=== PATIENT | female | born 1950 | race Caucasian/White ===

== ENCOUNTER → 2018-04-01 07:11 | Outpatient (CLI) | payer MEDICARE, OTHER, SELFPAY ==
[2018-04-01 07:50] LABS: Add Manual Diff / Slide Review NO; Basophils Percent Auto 0.4 % (0-2); Eosinophils Percent Auto 3.4 % (2-4); Hematocrit 41.5 % (36-46); Hemoglobin 13.9 g/dL (12.0-16.0); Lymphocytes Percent Auto 39.7 % (25-40); Mean Corpuscular HGB Conc 33.5 % (30-36); Mean Corpuscular Hemoglobin 31.2 PG (26-34); Mean Corpuscular Volume 93.1 fL (80-100); Monocytes Percent Auto 8.5 % (3-14); Neutrophils Absolute Auto 2100 /uL (3000-5900); Platelet Count 139 X10^3/uL (150-400); Red Blood Cell Count 4.46 X10^6/uL (4.0-5.2); Red Cell Distribution Width 13.1 % (11.6-14.8); White Blood Cell Count 4.4 X10^3/uL (4.5-11.0)
[2018-04-01 08:05] LABS: Alanine Aminotransferase 25 IU/L (9-52); Albumin 4.3 g/dL (3.5-5.0); Albumin Globulin Ratio 1.5 (1.0-2.8); Alkaline Phosphatase 67 U/L (38-126); Aspartate Aminotransferase 27 IU/L (14-36); BUN Creatinine Ratio 19.1 (6-22); Bilirubin Total 0.6 mg/dL (0.2-1.3); Blood Urea Nitrogen 21 mg/dL (7-17); Calcium 9.4 mg/dL (8.4-10.2); Carbon Dioxide 30 mmol/L (22-32); Chloride 106 mmol/L (98-107); Cholesterol 210 mg/dL (140-199); Estimated Glomerular Filt Rate 49.5 mL/min (>60); Globulin 2.8 g/dL (1.7-4.1); Glucose 103 mg/dL (80-110); HDL Cholesterol 84 mg/dL (40-60); HEMOLYSIS < 15 (0-50); LDL Cholesterol Calculated 116 mg/dL (<100); Potassium 4.4 mmol/L (3.4-5.1); Sodium 143 mmol/L (137-145); Total Protein 7.1 g/dL (6.3-8.2); Triglycerides 52 mg/dL (35-150)
[2018-04-01 08:50] LABS: Vitamin B12 880 pg/mL (239-931)
[2018-04-01 09:19] LABS: Free T4, Direct Thyroxine 1.25 ng/dL (0.78-2.19)
[2018-04-01 09:33] LABS: Thyroid Stimulating Hormone 1.03 uIU/mL (0.47-4.68)
== END ==
PROVIDERS: Visit Provider Physician Assistant
DX: Z12.11 Encounter for screening for malignant neoplasm of colon (principal); Z13.220 Encounter for screening for lipoid disorders; E03.9 Hypothyroidism, unspecified; E53.8 Deficiency of other specified B group vitamins
CPT/HCPCS: 80053; 80061; 82607; 84439; 84443; 85025

== ENCOUNTER → 2018-04-04 16:11 | Outpatient (CLI) | payer MEDICARE, OTHER, SELFPAY ==
[2018-04-04 19:49] LABS: Occult Blood 1 Negative (Negative); Occult Blood 2 Negative (Negative)
[2018-04-04 19:50] LABS: Occult Blood 3 Negative (Negative)
== END ==
PROVIDERS: Visit Provider Physician Assistant
DX: Z12.11 Encounter for screening for malignant neoplasm of colon (principal)
CPT/HCPCS: 82270

== ENCOUNTER → 2020-08-02 13:28 | Outpatient (CLI) | payer MEDICARE, OTHER, SELFPAY ==
[2020-08-02] MEDS: COVID-19 VACC #1, MRNA(MOD) 100 MCG/0.5 ML VIAL IM (13:42)
== END ==
PROVIDERS: Visit Provider Internal Medicine
DX: Z23 Encounter for immunization (principal)
CPT/HCPCS: 0011A; 91301

== ENCOUNTER → 2020-08-30 14:29 | Outpatient (CLI) | payer MEDICARE, OTHER, SELFPAY ==
[2020-08-30] MEDS: COVID-19 VACC #2, MRNA(MOD) 100 MCG/0.5 ML VIAL IM (14:35)
== END ==
PROVIDERS: Visit Provider Internal Medicine
DX: Z23 Encounter for immunization (principal)
CPT/HCPCS: 0012A; 91301

== ENCOUNTER 2021-05-01 09:45 | Outpatient (RCR) | payer MEDICARE, OTHER, SELFPAY ==
--- NOTE | 2021-03-06 11:12 | PT.OIE ---
Current Diagnoses Arthrodesis status (03/06/21) Visit Care Team Role Provider Type Saniya Clinton PA-C Primary Care Provider Non-Staff Specialty: Medical Address: [address] [place] [address] [address], [place], [address] Email: Niko Nesbitt MD Attending Provider Non-Staff Referring Provider Specialty: Medical Address: [address] [place] [address] [address], [place], [address] Email: Physical Therapy Initial Evaluation PT-OP-A Visit Information Start: 03/06/21 10:42 Freq: Status: Active Protocol: Document 03/06/21 10:43 HH (Rec: 03/06/21 11:11 HH [email or web address]) Out-Patient Physical Therapy Visit Information Visit Information Visit Type Initial Evaluation Visit Start Time 08:15 Visit Stop Time 09:00 Total Visit Minutes 45 Visit Number 07/30 Number of PAYROLL OFFICER Visits 0 Evaluation Information Evaluation Date 03/06/21 Precautions Precautions osteopenia PT-OP-B Current Condition Start: 03/06/21 10:42 Freq: Status: Active Protocol: Document 03/06/21 10:43 HH (Rec: 03/06/21 11:11 HH [email or web address]) Current Condition History of Current Condition Onset Date 01/06/21 Current Complaints s/p lumbar L4-L5 fusion, LBP, R leg pain, R foot slap History of Current Condition Emma is a 70 yo female here here for her rehab s/p 8 weeks Lumbar L4-L5 fusion. Pt has been having a new onset of radiating R leg pain (lateral knee to medial heel and big toe). She stated she only had mild radiating leg pain bilaterally, along with slight R foot weakness prior to surgery. Pt is having difficulty walking at this point with significant pain at R buttock during WB on RLE and new onset of R foot slap. Sitting and laying seem not to bother her. Pt has been taking Gabapentin at night and muscle relaxant for pain management. She also noticed her balance and overall LE strength have been decreasing. Pt did report to her surgeon Dr. Nesbitt and he stated that it is going to take at least 6 months for recovery. Prior Functional Status Baseline Function- Other pt was able to walk 3-5 miles /day and play pickle ball couple times a week Current Functional Impairments (Reported) Functional Limitations- Mobility/Gait pt is only able to walk up to 1-2 miles a day because of pain. PT-OP-C Subjective Start: 03/06/21 10:42 Freq: Status: Active Protocol: Document 03/06/21 10:43 HH (Rec: 03/06/21 11:11 [email or web address]) Patient Questionnaires Oswestry Low Back Index Oswestry Score 40 Oswestry Impairment 40 to 59% Impaired (Score 40- 59) OP-PT Pain Assessment Location R lower leg Pain Location Details lateral lower leg and lateral ankle Intensity 5 Description Aching,Radiating Frequency Frequent Pain Aggravating Factors Position,Activity,Exercise, Standing,Walking,Stair Climbing,Bending,Lifting Pain Alleviating Factors Inactivity,Sitting R buttock Pain Location Details buttock Intensity 5 Scale Used Numeric (0 - 10) Description Aching,Radiating Frequency Frequent Pain Aggravating Factors Position,Activity,Exercise, Standing,Walking,Stair Climbing,Bending,Lifting Pain Alleviating Factors Inactivity,Sitting PT-OP-D Balance Start: 03/06/21 10:42 Freq: Status: Active Protocol: Document 03/06/21 10:43 HH (Rec: 03/06/21 11:11 [email or web address]) Balance Tests Single Limb Standing Single Limb- Right <3s Single Limb- Left >25s PT-OP-F Manual Assessment Start: 03/06/21 10:42 Freq: Status: Active Protocol: Document 03/06/21 10:43 HH (Rec: 03/06/21 11:11 [email or web address]) Manual Assessments Soft Tissue Assessment Soft Tissue Mobility Assessment significant hypertonicity at R anterior tib and R TFL, and gluteal muscle group PT-OP-G Mobility & Gait Start: 03/06/21 10:42 Freq: Status: Active Protocol: Document 03/06/21 10:43 HH (Rec: 03/06/21 11:11 [email or web address]) OP Gait Assessment Gait Deviations General Gait Pattern Antalgic,Decreased Stride Length,Decreased Feet Clearance Factors Limiting Gait Function Factors Limiting Gait Function Decreased Activity Tolerance, Decreased Sensation,Decreased Strength,Limited Range of Motion,Pain,Poor Balance Comments Gait Comments significant antalgic sign on R LE during stance phase, R foot slap during heel strike. PT-OP-H Neuro Start: 03/06/21 10:42 Freq: Status: Active Protocol: Document 03/06/21 10:43 HH (Rec: 03/06/21 11:11 [email or web address]) Sensation Evaluation Gross Sensation Gross Sensation Right LE Impaired Sensation Description Numbness Dermatome Impairments L5 Deep Tendon Reflex & Clonus Assessment Deep Tendon Reflex Left Patellar Deep Tendon Reflex 2+ Normal Bilateral Achilles Deep Tendon Reflex 2+ Normal Right Patellar Deep Tendon Reflex 0 Absent PT-OP-K Range of Motion Start: 03/06/21 10:42 Freq: Status: Active Protocol: Document 03/06/21 10:43 HH (Rec: 03/06/21 11:11 [email or web address]) Ankle and Foot Goniometric Range of Motion Ankle and Foot Right Passive Ankle/Foot ROM WFL No Testing Position Supine Dorsiflexion with Knee Flexed 10 Dorsiflexion with Knee Extended 8 Right Active Ankle/Foot ROM WFL No Testing Position Supine Dorsiflexion with Knee Extended 0 Comments active DF = -5 Left Active Ankle/Foot ROM WFL Yes Testing Position Supine Dorsiflexion with Knee Flexed 7 Dorsiflexion with Knee Extended 5 PT-OP-L Special Tests Start: 03/06/21 10:42 Freq: Status: Active Protocol: Document 03/06/21 10:43 HH (Rec: 03/06/21 11:11 [email or web address]) Special Tests Lumbar Spine Special Tests Straight Leg Raise Test Results +VE R Comments ASLR up to 80, L = 95 Slump Test Results +VE R Comments radiating pain to buttock PT-OP-M Strength Start: 03/06/21 10:42 Freq: Status: Active Protocol: Document 03/06/21 10:43 HH (Rec: 03/06/21 11:11 [email or web address]) Hip Strength Hip Manual Muscle Testing Right Flexion (L2) 3+ Fair+ Extension (S1) 4- Good- Abduction 3+ Fair+ Adduction 4- Good- Left Flexion (L2) 5 Normal Extension (S1) 5 Normal Abduction 5 Normal Adduction 5 Normal Knee Strength Knee Manual Muscle Testing Right Flexion (S2) 4+ Good+ Extension (L3) 4+ Good+ Left Flexion (S2) 5 Normal Extension (L3) 5 Normal Ankle/Foot Strength Ankle and Foot Manual Muscle Testing Right Dorsiflexion (L4) 3+ Fair+ Plantarflexion (S1) 4+ Good+ Inversion 4+ Good+ Eversion (S1) 4+ Good+ Left Dorsiflexion (L4) 5 Normal Plantarflexion (S1) 5 Normal Inversion 5 Normal Eversion (S1) 5 Normal Toe Strength Toe Manual Muscle Testing Right Flexion 4- Good- Extension 4+ Good+ Left Great Toe Flexion 4+ Good+ Extension 4+ Good+ PT-OP-T Assessment and Plan Start: 03/06/21 10:42 Freq: Status: Active Protocol: Document 03/06/21 10:43 (Rec: 03/06/21 11:11 [email or web address]) Physical Therapy Assessment Rehab Potential Rehabilitation Potential Excellent Evaluation Complexity Number of Personal Factors/Comorbidities 1-2 Number of Body Systems Impaired 1-2 Clinical Presentation at Evaluation Stable Impairments Impairments Activity Tolerance,Balance, Functional Activities, Functional Mobility,Gait,Pain, Posture,ROM,Soft Tissue Mobility,Strength,Transfers Goals gait mechanics Impairment antalgic sign with R foot slap Short Term Goal (STG) pt will strengthen her R ankle DF and big toe extension to improve her foot slap pattern during heel strike STG Duration 5 weeks Blunger Goal (LTG) pt will show improved R LE strength and stability to reduce her R antalgic sign during gait LTG Duration 10 weeks nerve tension Impairment +Ve for slump test and ASLR Short Term Goal (STG) pt will show improve pain and neural sensitivity without radiating pain to buttock for both slump and ASLR tests STG Duration 8 weeks Owestry Impairment pt scores 40 on Owestry Short Term Goal (STG) pt will be able to show improved mobility and strength by scoring 30 or less on Owestry STG Duration 5 weeks Prison Goal (LTG) pt will be able to show improved mobility and strength by scoring 20 or less on Owestry LTG Duration 10 weeks Assessment Summary Assessment Emma is a 70 yo female here for rehab s/p 8 weeks L4-L5 fusion. Pt has been experiencing a new onset of radiating R leg pain and foot slap during gait with significant difficulty WB on her R side d/t pain. Upon assessment, pt has sensation loss at L5 dermatome, decrease knee jerk reflex, weakness with ankle DF and big toe extension which indicates L5 myotome involvement. She is also positive with slump test and ASLR. 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 Pt has had f/u with surgeon and Dr. Nesbitt did state it might take some time for recovery. I believe pt can benefit from a course of skilled therapy to decrease her sciatic neural tension, increase R ankle strength in order to normalize her gait and return to her PLOF, who likes to walk 3-4 miles a day and play pickleball. Physical Therapy Plan Frequency and Duration Frequency of Treatment 2x/Week Duration of Treatment 10 weeks Plan of Care Start Date 03/06/21 Plan of Care End Date 05/20/21 Therapeutic Interventions Therapeutic Interventions Aquatic Therapy,Balance Training,Gait Training,Home Exercise Program,Joint Mobilizations,Manual Therapy, Neuromuscular Re-education, Patient/Caregiver Education, Self-Care/Home Management,Soft Tissue Mobilization,Taping, Therapeutic Activities, Therapeutic Exercises Modalities Cold Pack/Ice Massage,Electric Stimulation,Hot Packs, Infrared Therapy,Traction- Mechanical,Ultrasound Other Therapeutic Interventions NMES for ankle DF Next Visit Focus/Plan Next Note Type Treatment Note Next Visit Plan STM on R glute, TFL, ant tib HEP for ankle DF, nerve glide glute activation NMES on ant tib if needed
--- NOTE | 2021-03-06 11:12 | PT.OPPOC ---
Physical, Occupational & Speech Therapy At [facility] Current Diagnoses Arthrodesis status (03/06/21) Visit Care Team Role Provider Type Saniya Clinton PA-C Primary Care Provider Non-Staff Specialty: Medical Address: [address] [place] [address] [address], [place], [address] Email: Niko Nesbitt MD Attending Provider Non-Staff Referring Provider Specialty: Medical Address: [address] [place] [address] [address], [place], [address] Email: Plan Of Care PT-OP-T Assessment and Plan Start: 03/06/21 10:42 Freq: Status: Active Protocol: Document 03/06/21 10:43 (Rec: 03/06/21 11:11 [email or web address]) Physical Therapy Assessment Rehab Potential Rehabilitation Potential Excellent Evaluation Complexity Number of Personal Factors/Comorbidities 1-2 Number of Body Systems Impaired 1-2 Clinical Presentation at Evaluation Stable Impairments Impairments Activity Tolerance,Balance, Functional Activities, Functional Mobility,Gait,Pain, Posture,ROM,Soft Tissue Mobility,Strength,Transfers Goals gait mechanics Impairment antalgic sign with R foot slap Short Term Goal (STG) pt will strengthen her R ankle DF and big toe extension to improve her foot slap pattern during heel strike STG Duration 5 weeks Furniture Finisher Apprentice Goal (LTG) pt will show improved R LE strength and stability to reduce her R antalgic sign during gait LTG Duration 10 weeks nerve tension Impairment +Ve for slump test and ASLR Short Term Goal (STG) pt will show improve pain and neural sensitivity without radiating pain to buttock for both slump and ASLR tests STG Duration 8 weeks Owestry Impairment pt scores 40 on Owestry Short Term Goal (STG) pt will be able to show improved mobility and strength by scoring 30 or less on Owestry STG Duration 5 weeks Long-Term Goal (LTG) pt will be able to show improved mobility and strength by scoring 20 or less on Owestry LTG Duration 10 weeks Assessment Summary Assessment Emma is a 70 yo female here for rehab s/p 8 weeks L4-L5 fusion. Pt has been experiencing a new onset of radiating R leg pain and foot slap during gait with significant difficulty WB on her R side d/t pain. Upon assessment, pt has sensation loss at L5 dermatome, decrease knee jerk reflex, weakness with ankle DF and big toe extension which indicates L5 myotome involvement. She is also positive with slump test and ASLR. 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 Pt has had f/u with surgeon and Dr. Nesbitt did state it might take some time for recovery. I believe pt can benefit from a course of skilled therapy to decrease her sciatic neural tension, increase R ankle strength in order to normalize her gait and return to her PLOF, who likes to walk 3-4 miles a day and play pickleball. Physical Therapy Plan Frequency and Duration Frequency of Treatment 2x/Week Duration of Treatment 10 weeks Plan of Care Start Date 03/06/21 Plan of Care End Date 05/20/21 Therapeutic Interventions Therapeutic Interventions Aquatic Therapy,Balance Training,Gait Training,Home Exercise Program,Joint Mobilizations,Manual Therapy, Neuromuscular Re-education, Patient/Caregiver Education, Self-Care/Home Management,Soft Tissue Mobilization,Taping, Therapeutic Activities, Therapeutic Exercises Modalities Cold Pack/Ice Massage,Electric Stimulation,Hot Packs, Infrared Therapy,Traction- Mechanical,Ultrasound Other Therapeutic Interventions NMES for ankle DF Next Visit Focus/Plan Next Note Type Treatment Note Next Visit Plan STM on R glute, TFL, ant tib HEP for ankle DF, nerve glide glute activation NMES on ant tib if needed Plan of Care Dates Plan of Care Start Date 03/06/21 Plan of Care End Date 05/20/21 Electronically Signed by: Raul Clements PT 03/06/21 [id number] Please Sign and Return: I have reviewed this Plan of Care and certify that the skilled therapy services above are required to meet the patient?s needs. Physician Signature Date Printed Name and Credentials Clinical Instructor Signature Printed Name and Credentials
--- NOTE | 2021-03-07 10:35 | PT.OTN ---
Current Diagnoses Arthrodesis status (03/07/21) Physical Therapy Treatment Note PT-OP-A Visit Information Start: 03/06/21 10:42 Freq: Status: Active Protocol: Document 03/07/21 09:50 HH (Rec: 03/07/21 10:35 [id number]) Out-Patient Physical Therapy Visit Information Visit Information Visit Type Treatment Note Visit Start Time 09:45 Visit Stop Time 10:38 Total Visit Minutes 53 Visit Number 08/30 Number of PAINT TRIMMER PIPE BOWLS Visits 0 PT-OP-B Current Condition Start: 03/06/21 10:42 Freq: Status: Active Protocol: Document 03/06/21 10:43 HH (Rec: 03/06/21 11:11 HH [email or web address]) Current Condition History of Current Condition Onset Date 01/06/21 Current Complaints s/p lumbar L4-L5 fusion, LBP, R leg pain, R foot slap History of Current Condition Emma is a 70 yo female here here for her rehab s/p 8 weeks Lumbar L4-L5 fusion. Pt has been having a new onset of radiating R leg pain (lateral knee to medial heel and big toe). She stated she only had mild radiating leg pain bilaterally, along with slight R foot weakness prior to surgery. Pt is having difficulty walking at this point with significant pain at R buttock during WB on RLE and new onset of R foot slap. Sitting and laying seem not to bother her. Pt has been taking Gabapentin at night and muscle relaxant for pain management. She also noticed her balance and overall LE strength have been decreasing. Pt did report to her surgeon Dr. Nesbitt and he stated that it is going to take at least 6 months for recovery. Prior Functional Status Baseline Function- Other pt was able to walk 3-5 miles /day and play pickle ball couple times a week Current Functional Impairments (Reported) Functional Limitations- Mobility/Gait pt is only able to walk up to 1-2 miles a day because of pain. PT-OP-C Subjective Start: 03/06/21 10:42 Freq: Status: Active Protocol: Document 03/07/21 09:50 HH (Rec: 03/07/21 10:35 HH [id number]) OP-PT Subjective Patient Comments Patient Comments I feel more tingling at the bottom of my R foot yesterday and i dont know why. PT-OP-D Balance Start: 03/06/21 10:42 Freq: Status: Active Protocol: Document 03/06/21 10:43 HH (Rec: 03/06/21 11:11 [email or web address]) Balance Tests Single Limb Standing Single Limb- Right <3s Single Limb- Left >25s PT-OP-F Manual Assessment Start: 03/06/21 10:42 Freq: Status: Active Protocol: Document 03/06/21 10:43 HH (Rec: 03/06/21 11:11 [email or web address]) Manual Assessments Soft Tissue Assessment Soft Tissue Mobility Assessment significant hypertonicity at R anterior tib and R TFL, and gluteal muscle group PT-OP-G Mobility & Gait Start: 03/06/21 10:42 Freq: Status: Active Protocol: Document 03/06/21 10:43 HH (Rec: 03/06/21 11:11 [email or web address]) OP Gait Assessment Gait Deviations General Gait Pattern Antalgic,Decreased Stride Length,Decreased Feet Clearance Factors Limiting Gait Function Factors Limiting Gait Function Decreased Activity Tolerance, Decreased Sensation,Decreased Strength,Limited Range of Motion,Pain,Poor Balance Comments Gait Comments significant antalgic sign on R LE during stance phase, R foot slap during heel strike. PT-OP-H Neuro Start: 03/06/21 10:42 Freq: Status: Active Protocol: Document 03/06/21 10:43 HH (Rec: 03/06/21 11:11 [email or web address]) Sensation Evaluation Gross Sensation Gross Sensation Right LE Impaired Sensation Description Numbness Dermatome Impairments L5 Deep Tendon Reflex & Clonus Assessment Deep Tendon Reflex Left Patellar Deep Tendon Reflex 2+ Normal Bilateral Achilles Deep Tendon Reflex 2+ Normal Right Patellar Deep Tendon Reflex 0 Absent PT-OP-K Range of Motion Start: 03/06/21 10:42 Freq: Status: Active Protocol: Document 03/06/21 10:43 HH (Rec: 03/06/21 11:11 [email or web address]) Ankle and Foot Goniometric Range of Motion Ankle and Foot Right Passive Ankle/Foot ROM WFL No Testing Position Supine Dorsiflexion with Knee Flexed 10 Dorsiflexion with Knee Extended 8 Right Active Ankle/Foot ROM WFL No Testing Position Supine Dorsiflexion with Knee Extended 0 Comments active DF = -5 Left Active Ankle/Foot ROM WFL Yes Testing Position Supine Dorsiflexion with Knee Flexed 7 Dorsiflexion with Knee Extended 5 PT-OP-L Special Tests Start: 03/06/21 10:42 Freq: Status: Active Protocol: Document 03/06/21 10:43 HH (Rec: 03/06/21 11:11 [email or web address]) Special Tests Lumbar Spine Special Tests Straight Leg Raise Test Results +VE R Comments ASLR up to 80, L = 95 Slump Test Results +VE R Comments radiating pain to buttock PT-OP-M Strength Start: 03/06/21 10:42 Freq: Status: Active Protocol: Document 03/06/21 10:43 HH (Rec: 03/06/21 11:11 [email or web address]) Hip Strength Hip Manual Muscle Testing Right Flexion (L2) 3+ Fair+ Extension (S1) 4- Good- Abduction 3+ Fair+ Adduction 4- Good- Left Flexion (L2) 5 Normal Extension (S1) 5 Normal Abduction 5 Normal Adduction 5 Normal Knee Strength Knee Manual Muscle Testing Right Flexion (S2) 4+ Good+ Extension (L3) 4+ Good+ Left Flexion (S2) 5 Normal Extension (L3) 5 Normal Ankle/Foot Strength Ankle and Foot Manual Muscle Testing Right Dorsiflexion (L4) 3+ Fair+ Plantarflexion (S1) 4+ Good+ Inversion 4+ Good+ Eversion (S1) 4+ Good+ Left Dorsiflexion (L4) 5 Normal Plantarflexion (S1) 5 Normal Inversion 5 Normal Eversion (S1) 5 Normal Toe Strength Toe Manual Muscle Testing Right Flexion 4- Good- Extension 4+ Good+ Left Great Toe Flexion 4+ Good+ Extension 4+ Good+ PT-OP-Q Treatments Start: 03/06/21 10:42 Freq: Status: Active Protocol: Document 03/07/21 09:50 HH (Rec: 03/07/21 10:35 [id number]) Cardio Equipment Recumbent Bicycle Duration (Minutes) 5 Resistance 5 Other no discomfort. Therapeutic Exercises Supine Exercises sciatic nerve glide Supine Exercise Name w DF Side right Reps/Minutes 10 Comments for HEP, no discomfort Sitting Exercises calf stretch Resistance belt Reps/Minutes 15 s x 5 Comments for HEP ankle DF Resistance level 2 band Reps/Minutes 10 x2 Manual Therapy Treatment Soft Tissue Mobilization ant tib Mobilization Type Myofascial Release,Sustained Pressure,Trigger Point Release Intensity/Depth Moderate Body Position Supine glute Body Location R Mobilization Type Myofascial Release,Sustained Pressure,Trigger Point Release Intensity/Depth Moderate Body Position Sidelying Comments TFL and piriformis and glute med. Significant tenderness noted but reduced after. PT-OP-R Modalities Start: 03/06/21 10:42 Freq: Status: Active Protocol: Document 03/07/21 09:50 HH (Rec: 03/07/21 10:35 HH [id number]) Hot Pack/Cold Pack Treatment Hot Pack Location R hip Patient Position Hooklying Treatment Duration (minutes) 15 Patient Tolerance Good PT-OP-T Assessment and Plan Start: 03/06/21 10:42 Freq: Status: Active Protocol: Document 03/07/21 09:50 HH (Rec: 03/07/21 10:35 HH [email or web address]) Physical Therapy Assessment Goals gait mechanics Impairment antalgic sign with R foot slap Short Term Goal (STG) pt will strengthen her R ankle DF and big toe extension to improve her foot slap pattern during heel strike STG Duration 5 weeks Nursing Home Goal (LTG) pt will show improved R LE strength and stability to reduce her R antalgic sign during gait LTG Duration 10 weeks nerve tension Impairment +Ve for slump test and ASLR Short Term Goal (STG) pt will show improve pain and neural sensitivity without radiating pain to buttock for both slump and ASLR tests STG Duration 8 weeks Owestry Impairment pt scores 40 on Owestry Short Term Goal (STG) pt will be able to show improved mobility and strength by scoring 30 or less on Owestry STG Duration 5 weeks Nursing Home Goal (LTG) pt will be able to show improved mobility and strength by scoring 20 or less on Owestry LTG Duration 10 weeks Assessment Summary Assessment First tx session today which focused on manual therapy on R glute and ant followed by sciatic nerve glide, PF stretch and ankle DF strengthening. Pt deb session very well and her slump test is negative at the end of session Physical Therapy Plan Frequency and Duration Frequency of Treatment 2x/Week Duration of Treatment 10 weeks Plan of Care Start Date 03/06/21 Plan of Care End Date 05/20/21 Therapeutic Interventions Therapeutic Interventions Aquatic Therapy,Balance Training,Gait Training,Home Exercise Program,Joint Mobilizations,Manual Therapy, Neuromuscular Re-education, Patient/Caregiver Education, Self-Care/Home Management,Soft Tissue Mobilization,Taping, Therapeutic Activities, Therapeutic Exercises Modalities Cold Pack/Ice Massage,Electric Stimulation,Hot Packs, Infrared Therapy,Traction- Mechanical,Ultrasound Other Therapeutic Interventions NMES for ankle DF Next Visit Focus/Plan Next Note Type Treatment Note Next Visit Plan STM on R glute, TFL, ant tib HEP for ankle DF, nerve glide glute activation NMES on ant tib if needed
--- NOTE | 2021-03-10 10:39 | PT.OTN ---
Current Diagnoses Arthrodesis status (03/10/21) Physical Therapy Treatment Note PT-OP-A Visit Information Start: 03/06/21 10:42 Freq: Status: Active Protocol: Document 03/10/21 09:47 HH (Rec: 03/10/21 10:39 [id number]) Out-Patient Physical Therapy Visit Information Visit Information Visit Type Treatment Note Visit Start Time 09:02 Visit Stop Time 09:55 Total Visit Minutes 55 Visit Number 09/27 Number of PRESCHOOL PARAPROFESSIONAL Visits 0 PT-OP-B Current Condition Start: 03/06/21 10:42 Freq: Status: Active Protocol: Document 03/06/21 10:43 HH (Rec: 03/06/21 11:11 HH [email or web address]) Current Condition History of Current Condition Onset Date 01/06/21 Current Complaints s/p lumbar L4-L5 fusion, LBP, R leg pain, R foot slap History of Current Condition Emma is a 70 yo female here here for her rehab s/p 8 weeks Lumbar L4-L5 fusion. Pt has been having a new onset of radiating R leg pain (lateral knee to medial heel and big toe). She stated she only had mild radiating leg pain bilaterally, along with slight R foot weakness prior to surgery. Pt is having difficulty walking at this point with significant pain at R buttock during WB on RLE and new onset of R foot slap. Sitting and laying seem not to bother her. Pt has been taking Gabapentin at night and muscle relaxant for pain management. She also noticed her balance and overall LE strength have been decreasing. Pt did report to her surgeon Dr. Nesbitt and he stated that it is going to take at least 6 months for recovery. Prior Functional Status Baseline Function- Other pt was able to walk 3-5 miles /day and play pickle ball couple times a week Current Functional Impairments (Reported) Functional Limitations- Mobility/Gait pt is only able to walk up to 1-2 miles a day because of pain. PT-OP-C Subjective Start: 03/06/21 10:42 Freq: Status: Active Protocol: Document 03/10/21 09:47 HH (Rec: 03/10/21 10:39 HH [id number]) OP-PT Subjective Patient Comments Patient Comments I havent really taken much pain medication. My pain has gone down. I have some burning sensation from collins down to my heel/ foot. Patient Reported Progress Improving PT-OP-D Balance Start: 03/06/21 10:42 Freq: Status: Active Protocol: Document 03/06/21 10:43 HH (Rec: 03/06/21 11:11 [email or web address]) Balance Tests Single Limb Standing Single Limb- Right <3s Single Limb- Left >25s PT-OP-F Manual Assessment Start: 03/06/21 10:42 Freq: Status: Active Protocol: Document 03/06/21 10:43 HH (Rec: 03/06/21 11:11 [email or web address]) Manual Assessments Soft Tissue Assessment Soft Tissue Mobility Assessment significant hypertonicity at R anterior tib and R TFL, and gluteal muscle group PT-OP-G Mobility & Gait Start: 03/06/21 10:42 Freq: Status: Active Protocol: Document 03/06/21 10:43 HH (Rec: 03/06/21 11:11 [email or web address]) OP Gait Assessment Gait Deviations General Gait Pattern Antalgic,Decreased Stride Length,Decreased Feet Clearance Factors Limiting Gait Function Factors Limiting Gait Function Decreased Activity Tolerance, Decreased Sensation,Decreased Strength,Limited Range of Motion,Pain,Poor Balance Comments Gait Comments significant antalgic sign on R LE during stance phase, R foot slap during heel strike. PT-OP-H Neuro Start: 03/06/21 10:42 Freq: Status: Active Protocol: Document 03/06/21 10:43 HH (Rec: 03/06/21 11:11 [email or web address]) Sensation Evaluation Gross Sensation Gross Sensation Right LE Impaired Sensation Description Numbness Dermatome Impairments L5 Deep Tendon Reflex & Clonus Assessment Deep Tendon Reflex Left Patellar Deep Tendon Reflex 2+ Normal Bilateral Achilles Deep Tendon Reflex 2+ Normal Right Patellar Deep Tendon Reflex 0 Absent PT-OP-K Range of Motion Start: 03/06/21 10:42 Freq: Status: Active Protocol: Document 03/06/21 10:43 HH (Rec: 03/06/21 11:11 [email or web address]) Ankle and Foot Goniometric Range of Motion Ankle and Foot Right Passive Ankle/Foot ROM WFL No Testing Position Supine Dorsiflexion with Knee Flexed 10 Dorsiflexion with Knee Extended 8 Right Active Ankle/Foot ROM WFL No Testing Position Supine Dorsiflexion with Knee Extended 0 Comments active DF = -5 Left Active Ankle/Foot ROM WFL Yes Testing Position Supine Dorsiflexion with Knee Flexed 7 Dorsiflexion with Knee Extended 5 PT-OP-L Special Tests Start: 03/06/21 10:42 Freq: Status: Active Protocol: Document 03/06/21 10:43 HH (Rec: 03/06/21 11:11 [email or web address]) Special Tests Lumbar Spine Special Tests Straight Leg Raise Test Results +VE R Comments ASLR up to 80, L = 95 Slump Test Results +VE R Comments radiating pain to buttock PT-OP-M Strength Start: 03/06/21 10:42 Freq: Status: Active Protocol: Document 03/06/21 10:43 HH (Rec: 03/06/21 11:11 [email or web address]) Hip Strength Hip Manual Muscle Testing Right Flexion (L2) 3+ Fair+ Extension (S1) 4- Good- Abduction 3+ Fair+ Adduction 4- Good- Left Flexion (L2) 5 Normal Extension (S1) 5 Normal Abduction 5 Normal Adduction 5 Normal Knee Strength Knee Manual Muscle Testing Right Flexion (S2) 4+ Good+ Extension (L3) 4+ Good+ Left Flexion (S2) 5 Normal Extension (L3) 5 Normal Ankle/Foot Strength Ankle and Foot Manual Muscle Testing Right Dorsiflexion (L4) 3+ Fair+ Plantarflexion (S1) 4+ Good+ Inversion 4+ Good+ Eversion (S1) 4+ Good+ Left Dorsiflexion (L4) 5 Normal Plantarflexion (S1) 5 Normal Inversion 5 Normal Eversion (S1) 5 Normal Toe Strength Toe Manual Muscle Testing Right Flexion 4- Good- Extension 4+ Good+ Left Great Toe Flexion 4+ Good+ Extension 4+ Good+ PT-OP-Q Treatments Start: 03/06/21 10:42 Freq: Status: Active Protocol: Document 03/10/21 09:47 HH (Rec: 03/10/21 10:39 [id number]) Cardio Equipment Recumbent Bicycle Duration (Minutes) 5 Resistance 5 Other no discomfort. Therapeutic Exercises Supine Exercises bridging Reps/Minutes 10 x2 Comments for HEP sciatic nerve glide Supine Exercise Name w DF Side right Reps/Minutes 10 Comments for HEP, no discomfort Sidelying Exercises clamshell Reps/Minutes 10 x2 Comments for HEP, no discomfort. Sitting Exercises calf stretch Resistance belt Reps/Minutes 15 s x 5 Comments for HEP ankle DF Resistance level 2 band Reps/Minutes 10 x2 Manual Therapy Treatment Soft Tissue Mobilization ant tib Mobilization Type Myofascial Release,Sustained Pressure,Trigger Point Release Intensity/Depth Moderate Body Position Supine glute Body Location R Mobilization Type Myofascial Release,Sustained Pressure,Trigger Point Release Intensity/Depth Moderate Body Position Sidelying Comments less tonicity today. Manual Traction R hip Body Position Supine Reps/Duration 10 sec hold x10 Comments pt reports decompression sensation PT-OP-R Modalities Start: 03/06/21 10:42 Freq: Status: Active Protocol: Document 03/10/21 09:47 HH (Rec: 03/10/21 10:39 [id number]) Electric Stimulation Electric Stimulation Haitian Stimulation Body Location R ant tib. Duration (Minutes) 10 Intensity 65 Cycle 10/10 Patient Position Sitting Comments with active DF during on PT-OP-T Assessment and Plan Start: 03/06/21 10:42 Freq: Status: Active Protocol: Document 03/10/21 09:47 (Rec: 03/10/21 10:39 [id number]) Physical Therapy Assessment Goals gait mechanics Impairment antalgic sign with R foot slap Short Term Goal (STG) pt will strengthen her R ankle DF and big toe extension to improve her foot slap pattern during heel strike STG Duration 5 weeks Custodial Goal (LTG) pt will show improved R LE strength and stability to reduce her R antalgic sign during gait LTG Duration 10 weeks nerve tension Impairment +Ve for slump test and ASLR Short Term Goal (STG) pt will show improve pain and neural sensitivity without radiating pain to buttock for both slump and ASLR tests STG Duration 8 weeks Owestry Impairment pt scores 40 on Owestry Short Term Goal (STG) pt will be able to show improved mobility and strength by scoring 30 or less on Owestry STG Duration 5 weeks Flake Cutter Operator Goal (LTG) pt will be able to show improved mobility and strength by scoring 20 or less on Owestry LTG Duration 10 weeks Assessment Summary Assessment pt reports good progress with reduced pain and increased sensation to R lower leg since last session. Added hip strengthening and micronesian stim to R ankle DF. will reassess next visit. Physical Therapy Plan Frequency and Duration Frequency of Treatment 2x/Week Duration of Treatment 10 weeks Plan of Care Start Date 03/06/21 Plan of Care End Date 05/20/21 Therapeutic Interventions Therapeutic Interventions Aquatic Therapy,Balance Training,Gait Training,Home Exercise Program,Joint Mobilizations,Manual Therapy, Neuromuscular Re-education, Patient/Caregiver Education, Self-Care/Home Management,Soft Tissue Mobilization,Taping, Therapeutic Activities, Therapeutic Exercises Modalities Cold Pack/Ice Massage,Electric Stimulation,Hot Packs, Infrared Therapy,Traction- Mechanical,Ultrasound Other Therapeutic Interventions NMES for ankle DF Next Visit Focus/Plan Next Note Type Treatment Note Next Visit Plan STM on R glute, TFL, ant tib HEP for ankle DF, nerve glide glute activation NMES on ant tib if needed
--- NOTE | 2021-03-13 09:56 | PT.OTN ---
Current Diagnoses Arthrodesis status (03/13/21) Physical Therapy Treatment Note PT-OP-A Visit Information Start: 03/06/21 10:42 Freq: Status: Active Protocol: Document 03/13/21 08:15 HH (Rec: 03/13/21 09:56 HH [id number]) Out-Patient Physical Therapy Visit Information Visit Information Visit Type Treatment Note Visit Note Surgeon signed POC and stated please let them know if PT would like pt to be seen earlier 04/09 Visit Start Time 08:15 Visit Stop Time 09:09 Total Visit Minutes 54 Visit Number 10/28 Number of EXECUTIVE COORDINATOR Visits 0 Precautions Precautions per surgeon protocol 02/20: progress into ex as deb no lifting greater than 15 lbs no prolonged sitting /standing no extreme bending or twisting at the waist PT-OP-B Current Condition Start: 03/06/21 10:42 Freq: Status: Active Protocol: Document 03/06/21 10:43 HH (Rec: 03/06/21 11:11 HH [email or web address]) Current Condition History of Current Condition Onset Date 01/06/21 Current Complaints s/p lumbar L4-L5 fusion, LBP, R leg pain, R foot slap History of Current Condition Emma is a 70 yo female here here for her rehab s/p 8 weeks Lumbar L4-L5 fusion. Pt has been having a new onset of radiating R leg pain (lateral knee to medial heel and big toe). She stated she only had mild radiating leg pain bilaterally, along with slight R foot weakness prior to surgery. Pt is having difficulty walking at this point with significant pain at R buttock during WB on RLE and new onset of R foot slap. Sitting and laying seem not to bother her. Pt has been taking Gabapentin at night and muscle relaxant for pain management. She also noticed her balance and overall LE strength have been decreasing. Pt did report to her surgeon Dr. Nesbitt and he stated that it is going to take at least 6 months for recovery. Prior Functional Status Baseline Function- Other pt was able to walk 3-5 miles /day and play pickle ball couple times a week Current Functional Impairments (Reported) Functional Limitations- Mobility/Gait pt is only able to walk up to 1-2 miles a day because of pain. PT-OP-C Subjective Start: 03/06/21 10:42 Freq: Status: Active Protocol: Document 03/13/21 08:15 HH (Rec: 03/13/21 09:56 HH [id number]) OP-PT Subjective Patient Comments Patient Comments Its been around the same. I have a lot of burning sensation and pain from my collins down while im sleeping and i basically dont get sleep since surgery. Patient Reported Progress Same PT-OP-D Balance Start: 03/06/21 10:42 Freq: Status: Active Protocol: Document 03/06/21 10:43 HH (Rec: 03/06/21 11:11 [email or web address]) Balance Tests Single Limb Standing Single Limb- Right <3s Single Limb- Left >25s PT-OP-F Manual Assessment Start: 03/06/21 10:42 Freq: Status: Active Protocol: Document 03/06/21 10:43 HH (Rec: 03/06/21 11:11 [email or web address]) Manual Assessments Soft Tissue Assessment Soft Tissue Mobility Assessment significant hypertonicity at R anterior tib and R TFL, and gluteal muscle group PT-OP-G Mobility & Gait Start: 03/06/21 10:42 Freq: Status: Active Protocol: Document 03/06/21 10:43 HH (Rec: 03/06/21 11:11 [email or web address]) OP Gait Assessment Gait Deviations General Gait Pattern Antalgic,Decreased Stride Length,Decreased Feet Clearance Factors Limiting Gait Function Factors Limiting Gait Function Decreased Activity Tolerance, Decreased Sensation,Decreased Strength,Limited Range of Motion,Pain,Poor Balance Comments Gait Comments significant antalgic sign on R LE during stance phase, R foot slap during heel strike. PT-OP-H Neuro Start: 03/06/21 10:42 Freq: Status: Active Protocol: Document 03/06/21 10:43 HH (Rec: 03/06/21 11:11 [email or web address]) Sensation Evaluation Gross Sensation Gross Sensation Right LE Impaired Sensation Description Numbness Dermatome Impairments L5 Deep Tendon Reflex & Clonus Assessment Deep Tendon Reflex Left Patellar Deep Tendon Reflex 2+ Normal Bilateral Achilles Deep Tendon Reflex 2+ Normal Right Patellar Deep Tendon Reflex 0 Absent PT-OP-K Range of Motion Start: 03/06/21 10:42 Freq: Status: Active Protocol: Document 03/06/21 10:43 HH (Rec: 03/06/21 11:11 [email or web address]) Ankle and Foot Goniometric Range of Motion Ankle and Foot Right Passive Ankle/Foot ROM WFL No Testing Position Supine Dorsiflexion with Knee Flexed 10 Dorsiflexion with Knee Extended 8 Right Active Ankle/Foot ROM WFL No Testing Position Supine Dorsiflexion with Knee Extended 0 Comments active DF = -5 Left Active Ankle/Foot ROM WFL Yes Testing Position Supine Dorsiflexion with Knee Flexed 7 Dorsiflexion with Knee Extended 5 PT-OP-L Special Tests Start: 03/06/21 10:42 Freq: Status: Active Protocol: Document 03/06/21 10:43 HH (Rec: 03/06/21 11:11 [email or web address]) Special Tests Lumbar Spine Special Tests Straight Leg Raise Test Results +VE R Comments ASLR up to 80, L = 95 Slump Test Results +VE R Comments radiating pain to buttock PT-OP-M Strength Start: 03/06/21 10:42 Freq: Status: Active Protocol: Document 03/06/21 10:43 HH (Rec: 03/06/21 11:11 [email or web address]) Hip Strength Hip Manual Muscle Testing Right Flexion (L2) 3+ Fair+ Extension (S1) 4- Good- Abduction 3+ Fair+ Adduction 4- Good- Left Flexion (L2) 5 Normal Extension (S1) 5 Normal Abduction 5 Normal Adduction 5 Normal Knee Strength Knee Manual Muscle Testing Right Flexion (S2) 4+ Good+ Extension (L3) 4+ Good+ Left Flexion (S2) 5 Normal Extension (L3) 5 Normal Ankle/Foot Strength Ankle and Foot Manual Muscle Testing Right Dorsiflexion (L4) 3+ Fair+ Plantarflexion (S1) 4+ Good+ Inversion 4+ Good+ Eversion (S1) 4+ Good+ Left Dorsiflexion (L4) 5 Normal Plantarflexion (S1) 5 Normal Inversion 5 Normal Eversion (S1) 5 Normal Toe Strength Toe Manual Muscle Testing Right Flexion 4- Good- Extension 4+ Good+ Left Great Toe Flexion 4+ Good+ Extension 4+ Good+ PT-OP-Q Treatments Start: 03/06/21 10:42 Freq: Status: Active Protocol: Document 03/13/21 08:15 HH (Rec: 03/13/21 09:56 HH [id number]) Cardio Equipment Recumbent Bicycle Duration (Minutes) 5 Resistance 5 Other no discomfort. Gym Equipment Shuttle Recovery SL squat Resistance #37 Shuttle Recovery Platform Stable Reps/Time 15 x 2 Therapeutic Exercises Supine Exercises bridging Supine Exercise Name review Reps/Minutes 10 x2 sciatic nerve glide Supine Exercise Name w DF Side right Reps/Minutes 10 Sidelying Exercises clamshell Reps/Minutes 10 x2 Comments for HEP, no discomfort. Manual Therapy Treatment Soft Tissue Mobilization ant tib Mobilization Type Myofascial Release,Sustained Pressure,Trigger Point Release Intensity/Depth Moderate Body Position Supine glute Body Location R Mobilization Type Myofascial Release,Sustained Pressure,Trigger Point Release Intensity/Depth Moderate Body Position Sidelying Comments some tonicity noted at R TFL and quad Manual Traction R hip Body Position Supine Reps/Duration 10 sec hold x10 Comments pt reports decompression sensation PT-OP-R Modalities Start: 03/06/21 10:42 Freq: Status: Active Protocol: Document 03/13/21 08:15 HH (Rec: 03/13/21 09:56 [id number]) Electric Stimulation Electric Stimulation Bahraini Stimulation Body Location R ant tib. Duration (Minutes) 10 Intensity 72 Cycle 10/10 Patient Position Sitting Comments with active DF during on pt shows improved induced activation of ant tib by e- stim. PT-OP-T Assessment and Plan Start: 03/06/21 10:42 Freq: Status: Active Protocol: Document 03/13/21 08:15 HH (Rec: 03/13/21 09:56 [id number]) Physical Therapy Assessment Goals gait mechanics Impairment antalgic sign with R foot slap Short Term Goal (STG) pt will strengthen her R ankle DF and big toe extension to improve her foot slap pattern during heel strike STG Duration 5 weeks Early Head Start Director Goal (LTG) pt will show improved R LE strength and stability to reduce her R antalgic sign during gait LTG Duration 10 weeks nerve tension Impairment +Ve for slump test and ASLR Short Term Goal (STG) pt will show improve pain and neural sensitivity without radiating pain to buttock for both slump and ASLR tests STG Duration 8 weeks Owestry Impairment pt scores 40 on Owestry Short Term Goal (STG) pt will be able to show improved mobility and strength by scoring 30 or less on Owestry STG Duration 5 weeks Alf Goal (LTG) pt will be able to show improved mobility and strength by scoring 20 or less on Owestry LTG Duration 10 weeks Assessment Summary Assessment pt reports she continuously experiences night burning pain from collins down. Recommended her to place pillows under her knees to decreased spinal pressure. She has more induced anterior tib activation from Bahraini stim today. Will continue monitor her activity tolerance and foot drop progression. Physical Therapy Plan Frequency and Duration Frequency of Treatment 2x/Week Duration of Treatment 10 weeks Plan of Care Start Date 03/06/21 Plan of Care End Date 05/20/21 Therapeutic Interventions Therapeutic Interventions Aquatic Therapy,Balance Training,Gait Training,Home Exercise Program,Joint Mobilizations,Manual Therapy, Neuromuscular Re-education, Patient/Caregiver Education, Self-Care/Home Management,Soft Tissue Mobilization,Taping, Therapeutic Activities, Therapeutic Exercises Modalities Cold Pack/Ice Massage,Electric Stimulation,Hot Packs, Infrared Therapy,Traction- Mechanical,Ultrasound Other Therapeutic Interventions NMES for ankle DF Next Visit Focus/Plan Next Note Type Treatment Note Next Visit Plan STM on R glute, TFL, ant tib HEP for ankle DF, nerve glide glute activation NMES on ant tib if needed
--- NOTE | 2021-03-19 09:14 | PT.OTN ---
Current Diagnoses Arthrodesis status (03/19/21) Physical Therapy Treatment Note PT-OP-A Visit Information Start: 03/06/21 10:42 Freq: Status: Active Protocol: Document 03/19/21 08:15 HH (Rec: 03/19/21 09:13 [id number]) Out-Patient Physical Therapy Visit Information Visit Information Visit Type Treatment Note Visit Note Surgeon signed POC and stated please let them know if PT would like pt to be seen earlier 04/09 Visit Start Time 08:15 Visit Stop Time 09:10 Total Visit Minutes 55 Visit Number 11/27 Number of CONTRACT CLERK AUTOMOBILE Visits 0 PT-OP-B Current Condition Start: 03/06/21 10:42 Freq: Status: Active Protocol: Document 03/06/21 10:43 HH (Rec: 03/06/21 11:11 HH [email or web address]) Current Condition History of Current Condition Onset Date 01/06/21 Current Complaints s/p lumbar L4-L5 fusion, LBP, R leg pain, R foot slap History of Current Condition Emma is a 70 yo female here here for her rehab s/p 8 weeks Lumbar L4-L5 fusion. Pt has been having a new onset of radiating R leg pain (lateral knee to medial heel and big toe). She stated she only had mild radiating leg pain bilaterally, along with slight R foot weakness prior to surgery. Pt is having difficulty walking at this point with significant pain at R buttock during WB on RLE and new onset of R foot slap. Sitting and laying seem not to bother her. Pt has been taking Gabapentin at night and muscle relaxant for pain management. She also noticed her balance and overall LE strength have been decreasing. Pt did report to her surgeon Dr. Nesbitt and he stated that it is going to take at least 6 months for recovery. Prior Functional Status Baseline Function- Other pt was able to walk 3-5 miles /day and play pickle ball couple times a week Current Functional Impairments (Reported) Functional Limitations- Mobility/Gait pt is only able to walk up to 1-2 miles a day because of pain. PT-OP-C Subjective Start: 03/06/21 10:42 Freq: Status: Active Protocol: Document 03/19/21 08:15 HH (Rec: 03/19/21 09:13 [id number]) OP-PT Subjective Patient Comments Patient Comments Im frustrated cause my hip and leg are weak. Priya been able to sleep better with less pain in general. I dont have much burning sensation down to my foot. Patient Reported Progress Improving PT-OP-D Balance Start: 03/06/21 10:42 Freq: Status: Active Protocol: Document 03/06/21 10:43 HH (Rec: 03/06/21 11:11 [email or web address]) Balance Tests Single Limb Standing Single Limb- Right <3s Single Limb- Left >25s PT-OP-F Manual Assessment Start: 03/06/21 10:42 Freq: Status: Active Protocol: Document 03/06/21 10:43 HH (Rec: 03/06/21 11:11 [email or web address]) Manual Assessments Soft Tissue Assessment Soft Tissue Mobility Assessment significant hypertonicity at R anterior tib and R TFL, and gluteal muscle group PT-OP-G Mobility & Gait Start: 03/06/21 10:42 Freq: Status: Active Protocol: Document 03/06/21 10:43 HH (Rec: 03/06/21 11:11 [email or web address]) OP Gait Assessment Gait Deviations General Gait Pattern Antalgic,Decreased Stride Length,Decreased Feet Clearance Factors Limiting Gait Function Factors Limiting Gait Function Decreased Activity Tolerance, Decreased Sensation,Decreased Strength,Limited Range of Motion,Pain,Poor Balance Comments Gait Comments significant antalgic sign on R LE during stance phase, R foot slap during heel strike. PT-OP-H Neuro Start: 03/06/21 10:42 Freq: Status: Active Protocol: Document 03/06/21 10:43 HH (Rec: 03/06/21 11:11 [email or web address]) Sensation Evaluation Gross Sensation Gross Sensation Right LE Impaired Sensation Description Numbness Dermatome Impairments L5 Deep Tendon Reflex & Clonus Assessment Deep Tendon Reflex Left Patellar Deep Tendon Reflex 2+ Normal Bilateral Achilles Deep Tendon Reflex 2+ Normal Right Patellar Deep Tendon Reflex 0 Absent PT-OP-K Range of Motion Start: 03/06/21 10:42 Freq: Status: Active Protocol: Document 03/06/21 10:43 HH (Rec: 03/06/21 11:11 [email or web address]) Ankle and Foot Goniometric Range of Motion Ankle and Foot Right Passive Ankle/Foot ROM WFL No Testing Position Supine Dorsiflexion with Knee Flexed 10 Dorsiflexion with Knee Extended 8 Right Active Ankle/Foot ROM WFL No Testing Position Supine Dorsiflexion with Knee Extended 0 Comments active DF = -5 Left Active Ankle/Foot ROM WFL Yes Testing Position Supine Dorsiflexion with Knee Flexed 7 Dorsiflexion with Knee Extended 5 PT-OP-L Special Tests Start: 03/06/21 10:42 Freq: Status: Active Protocol: Document 03/06/21 10:43 HH (Rec: 03/06/21 11:11 [email or web address]) Special Tests Lumbar Spine Special Tests Straight Leg Raise Test Results +VE R Comments ASLR up to 80, L = 95 Slump Test Results +VE R Comments radiating pain to buttock PT-OP-M Strength Start: 03/06/21 10:42 Freq: Status: Active Protocol: Document 03/06/21 10:43 HH (Rec: 03/06/21 11:11 [email or web address]) Hip Strength Hip Manual Muscle Testing Right Flexion (L2) 3+ Fair+ Extension (S1) 4- Good- Abduction 3+ Fair+ Adduction 4- Good- Left Flexion (L2) 5 Normal Extension (S1) 5 Normal Abduction 5 Normal Adduction 5 Normal Knee Strength Knee Manual Muscle Testing Right Flexion (S2) 4+ Good+ Extension (L3) 4+ Good+ Left Flexion (S2) 5 Normal Extension (L3) 5 Normal Ankle/Foot Strength Ankle and Foot Manual Muscle Testing Right Dorsiflexion (L4) 3+ Fair+ Plantarflexion (S1) 4+ Good+ Inversion 4+ Good+ Eversion (S1) 4+ Good+ Left Dorsiflexion (L4) 5 Normal Plantarflexion (S1) 5 Normal Inversion 5 Normal Eversion (S1) 5 Normal Toe Strength Toe Manual Muscle Testing Right Flexion 4- Good- Extension 4+ Good+ Left Great Toe Flexion 4+ Good+ Extension 4+ Good+ PT-OP-Q Treatments Start: 03/06/21 10:42 Freq: Status: Active Protocol: Document 03/19/21 08:15 HH (Rec: 03/19/21 09:13 [id number]) Cardio Equipment Recumbent Bicycle Duration (Minutes) 5 Resistance 5 Other no discomfort. Gym Equipment Shuttle Recovery SL squat Resistance #37 Shuttle Recovery Platform Stable Reps/Time 15 x 2 Therapeutic Exercises Supine Exercises bridging Supine Exercise Name review Equipment Used red band Reps/Minutes 10 x2 sciatic nerve glide Supine Exercise Name w DF Side right Reps/Minutes 10 Sitting Exercises ankle DF Resistance level 2 band Reps/Minutes 10 x2 Manual Therapy Treatment Soft Tissue Mobilization ant tib Mobilization Type Myofascial Release,Sustained Pressure,Trigger Point Release Intensity/Depth Moderate Body Position Supine glute Body Location R Mobilization Type Myofascial Release,Sustained Pressure,Trigger Point Release Intensity/Depth Moderate Body Position Sidelying Comments some tonicity noted at R TFL and quad Manual Traction R hip Body Position Supine Reps/Duration 10 sec hold x10 Comments pt reports decompression sensation PT-OP-R Modalities Start: 03/06/21 10:42 Freq: Status: Active Protocol: Document 03/19/21 08:15 (Rec: 03/19/21 09:13 [id number]) Electric Stimulation Electric Stimulation Uzbek Stimulation Body Location R ant tib. Duration (Minutes) 10 Intensity 80 Cycle 10/10 Patient Position Sitting Comments with active DF during on pt shows improved induced activation of ant tib by e- stim. PT-OP-T Assessment and Plan Start: 03/06/21 10:42 Freq: Status: Active Protocol: Document 03/19/21 08:15 (Rec: 03/19/21 09:13 [id number]) Physical Therapy Assessment Goals gait mechanics Impairment antalgic sign with R foot slap Short Term Goal (STG) pt will strengthen her R ankle DF and big toe extension to improve her foot slap pattern during heel strike STG Duration 5 weeks Longterm Goal (LTG) pt will show improved R LE strength and stability to reduce her R antalgic sign during gait LTG Duration 10 weeks nerve tension Impairment +Ve for slump test and ASLR Short Term Goal (STG) pt will show improve pain and neural sensitivity without radiating pain to buttock for both slump and ASLR tests STG Duration 8 weeks Owestry Impairment pt scores 40 on Owestry Short Term Goal (STG) pt will be able to show improved mobility and strength by scoring 30 or less on Owestry STG Duration 5 weeks Learning Center Coordinator Goal (LTG) pt will be able to show improved mobility and strength by scoring 20 or less on Owestry LTG Duration 10 weeks Assessment Summary Assessment Pt shows good progress with her pain and sensation who is able to sleep better. However, she still has difficulty with ankle DF. Physical Therapy Plan Frequency and Duration Frequency of Treatment 2x/Week Duration of Treatment 10 weeks Plan of Care Start Date 03/06/21 Plan of Care End Date 05/20/21 Therapeutic Interventions Therapeutic Interventions Aquatic Therapy,Balance Training,Gait Training,Home Exercise Program,Joint Mobilizations,Manual Therapy, Neuromuscular Re-education, Patient/Caregiver Education, Self-Care/Home Management,Soft Tissue Mobilization,Taping, Therapeutic Activities, Therapeutic Exercises Modalities Cold Pack/Ice Massage,Electric Stimulation,Hot Packs, Infrared Therapy,Traction- Mechanical,Ultrasound Other Therapeutic Interventions NMES for ankle DF Next Visit Focus/Plan Next Note Type Treatment Note Next Visit Plan STM on R glute, TFL, ant tib HEP for ankle DF, nerve glide glute activation NMES on ant tib if needed
--- NOTE | 2021-03-21 10:57 | PT.OTN ---
Current Diagnoses Arthrodesis status (03/21/21) Physical Therapy Treatment Note PT-OP-A Visit Information Start: 03/06/21 10:42 Freq: Status: Active Protocol: Document 03/21/21 08:17 HH (Rec: 03/21/21 10:57 [id number]) Out-Patient Physical Therapy Visit Information Visit Information Visit Type Treatment Note Visit Note Surgeon signed POC and stated please let them know if PT would like pt to be seen earlier 04/09 Visit Start Time 08:16 Visit Stop Time 09:10 Total Visit Minutes 54 Visit Number 12/28 Number of RESEARCH TECHNOLOGIST Visits 0 PT-OP-B Current Condition Start: 03/06/21 10:42 Freq: Status: Active Protocol: Document 03/06/21 10:43 HH (Rec: 03/06/21 11:11 [email or web address]) Current Condition History of Current Condition Onset Date 01/06/21 Current Complaints s/p lumbar L4-L5 fusion, LBP, R leg pain, R foot slap History of Current Condition Emma is a 70 yo female here here for her rehab s/p 8 weeks Lumbar L4-L5 fusion. Pt has been having a new onset of radiating R leg pain (lateral knee to medial heel and big toe). She stated she only had mild radiating leg pain bilaterally, along with slight R foot weakness prior to surgery. Pt is having difficulty walking at this point with significant pain at R buttock during WB on RLE and new onset of R foot slap. Sitting and laying seem not to bother her. Pt has been taking Gabapentin at night and muscle relaxant for pain management. She also noticed her balance and overall LE strength have been decreasing. Pt did report to her surgeon Dr. Nesbitt and he stated that it is going to take at least 6 months for recovery. Prior Functional Status Baseline Function- Other pt was able to walk 3-5 miles /day and play pickle ball couple times a week Current Functional Impairments (Reported) Functional Limitations- Mobility/Gait pt is only able to walk up to 1-2 miles a day because of pain. PT-OP-C Subjective Start: 03/06/21 10:42 Freq: Status: Active Protocol: Document 03/21/21 08:17 HH (Rec: 03/21/21 10:57 [id number]) OP-PT Subjective Patient Comments Patient Comments I started a gym membership and using the leg press and eliptical and i felt fine. The burning pain is getting less and smaller area. Im sleeping better in general. Patient Reported Progress Improving PT-OP-D Balance Start: 03/06/21 10:42 Freq: Status: Active Protocol: Document 03/06/21 10:43 HH (Rec: 03/06/21 11:11 [email or web address]) Balance Tests Single Limb Standing Single Limb- Right <3s Single Limb- Left >25s PT-OP-F Manual Assessment Start: 03/06/21 10:42 Freq: Status: Active Protocol: Document 03/06/21 10:43 HH (Rec: 03/06/21 11:11 [email or web address]) Manual Assessments Soft Tissue Assessment Soft Tissue Mobility Assessment significant hypertonicity at R anterior tib and R TFL, and gluteal muscle group PT-OP-G Mobility & Gait Start: 03/06/21 10:42 Freq: Status: Active Protocol: Document 03/06/21 10:43 HH (Rec: 03/06/21 11:11 [email or web address]) OP Gait Assessment Gait Deviations General Gait Pattern Antalgic,Decreased Stride Length,Decreased Feet Clearance Factors Limiting Gait Function Factors Limiting Gait Function Decreased Activity Tolerance, Decreased Sensation,Decreased Strength,Limited Range of Motion,Pain,Poor Balance Comments Gait Comments significant antalgic sign on R LE during stance phase, R foot slap during heel strike. PT-OP-H Neuro Start: 03/06/21 10:42 Freq: Status: Active Protocol: Document 03/06/21 10:43 HH (Rec: 03/06/21 11:11 [email or web address]) Sensation Evaluation Gross Sensation Gross Sensation Right LE Impaired Sensation Description Numbness Dermatome Impairments L5 Deep Tendon Reflex & Clonus Assessment Deep Tendon Reflex Left Patellar Deep Tendon Reflex 2+ Normal Bilateral Achilles Deep Tendon Reflex 2+ Normal Right Patellar Deep Tendon Reflex 0 Absent PT-OP-K Range of Motion Start: 03/06/21 10:42 Freq: Status: Active Protocol: Document 03/06/21 10:43 HH (Rec: 03/06/21 11:11 [email or web address]) Ankle and Foot Goniometric Range of Motion Ankle and Foot Right Passive Ankle/Foot ROM WFL No Testing Position Supine Dorsiflexion with Knee Flexed 10 Dorsiflexion with Knee Extended 8 Right Active Ankle/Foot ROM WFL No Testing Position Supine Dorsiflexion with Knee Extended 0 Comments active DF = -5 Left Active Ankle/Foot ROM WFL Yes Testing Position Supine Dorsiflexion with Knee Flexed 7 Dorsiflexion with Knee Extended 5 PT-OP-L Special Tests Start: 03/06/21 10:42 Freq: Status: Active Protocol: Document 03/06/21 10:43 HH (Rec: 03/06/21 11:11 [email or web address]) Special Tests Lumbar Spine Special Tests Straight Leg Raise Test Results +VE R Comments ASLR up to 80, L = 95 Slump Test Results +VE R Comments radiating pain to buttock PT-OP-M Strength Start: 03/06/21 10:42 Freq: Status: Active Protocol: Document 03/06/21 10:43 HH (Rec: 03/06/21 11:11 [email or web address]) Hip Strength Hip Manual Muscle Testing Right Flexion (L2) 3+ Fair+ Extension (S1) 4- Good- Abduction 3+ Fair+ Adduction 4- Good- Left Flexion (L2) 5 Normal Extension (S1) 5 Normal Abduction 5 Normal Adduction 5 Normal Knee Strength Knee Manual Muscle Testing Right Flexion (S2) 4+ Good+ Extension (L3) 4+ Good+ Left Flexion (S2) 5 Normal Extension (L3) 5 Normal Ankle/Foot Strength Ankle and Foot Manual Muscle Testing Right Dorsiflexion (L4) 3+ Fair+ Plantarflexion (S1) 4+ Good+ Inversion 4+ Good+ Eversion (S1) 4+ Good+ Left Dorsiflexion (L4) 5 Normal Plantarflexion (S1) 5 Normal Inversion 5 Normal Eversion (S1) 5 Normal Toe Strength Toe Manual Muscle Testing Right Flexion 4- Good- Extension 4+ Good+ Left Great Toe Flexion 4+ Good+ Extension 4+ Good+ PT-OP-Q Treatments Start: 03/06/21 10:42 Freq: Status: Active Protocol: Document 03/21/21 08:17 HH (Rec: 03/21/21 10:57 [id number]) Cardio Equipment Recumbent Bicycle Duration (Minutes) 5 Resistance 5 Other no discomfort. Gym Equipment Shuttle Recovery SL squat Resistance #37 Shuttle Recovery Platform Stable Reps/Time 15 x 2 Therapeutic Exercises Supine Exercises 2 way ankle Supine Exercise Name resisted ankle EV and DF Side right Resistance red band bridging Supine Exercise Name review Equipment Used red band Reps/Minutes 10 x2 sciatic nerve glide Supine Exercise Name w DF Side right Reps/Minutes 10 Manual Therapy Treatment Soft Tissue Mobilization hip adductors Mobilization Type Rolling Intensity/Depth Moderate Body Position Hooklying Comments with roller on R hip adductors . ant tib Mobilization Type Myofascial Release,Sustained Pressure,Trigger Point Release Intensity/Depth Moderate Body Position Supine glute Body Location R Mobilization Type Myofascial Release,Sustained Pressure,Trigger Point Release Intensity/Depth Moderate Body Position Sidelying Comments some tonicity noted at R TFL and quad Self-Care/Home Management Treatment Education Patient Education Joint Protection,Pain Management,Posture Other Education educated pt to wear shoewear with heel support and thicker heel sole to reduce pressure from heel strike. PT-OP-R Modalities Start: 03/06/21 10:42 Freq: Status: Active Protocol: Document 03/21/21 08:17 (Rec: 03/21/21 10:57 [id number]) Electric Stimulation Electric Stimulation Fijian Stimulation Body Location R ant tib. Duration (Minutes) 10 Intensity 80 Cycle 10/10 Patient Position Sitting Comments with active DF during on pt shows improved induced activation of ant tib by e- stim. PT-OP-T Assessment and Plan Start: 03/06/21 10:42 Freq: Status: Active Protocol: Document 03/21/21 08:17 (Rec: 03/21/21 10:57 [id number]) Physical Therapy Assessment Goals gait mechanics Impairment antalgic sign with R foot slap Short Term Goal (STG) pt will strengthen her R ankle DF and big toe extension to improve her foot slap pattern during heel strike STG Duration 5 weeks Embossograph Operator Goal (LTG) pt will show improved R LE strength and stability to reduce her R antalgic sign during gait LTG Duration 10 weeks nerve tension Impairment +Ve for slump test and ASLR Short Term Goal (STG) pt will show improve pain and neural sensitivity without radiating pain to buttock for both slump and ASLR tests STG Duration 8 weeks Owestry Impairment pt scores 40 on Owestry Short Term Goal (STG) pt will be able to show improved mobility and strength by scoring 30 or less on Owestry STG Duration 5 weeks Fci Goal (LTG) pt will be able to show improved mobility and strength by scoring 20 or less on Owestry LTG Duration 10 weeks Assessment Summary Assessment pt has been c/o constant heel pain during WB activities since . I believe it is due to her foot slap which forces her to have a harder heel strike. Recommended her to wear shoes with better heel cup support and heel sole to reduce impact during WB activities. Besides, pt reports her pain in L lower leg is getting better . Will continue to improve her hip stability and strength to normalize her gait. Physical Therapy Plan Frequency and Duration Frequency of Treatment 2x/Week Duration of Treatment 10 weeks Plan of Care Start Date 03/06/21 Plan of Care End Date 05/20/21 Therapeutic Interventions Therapeutic Interventions Aquatic Therapy,Balance Training,Gait Training,Home Exercise Program,Joint Mobilizations,Manual Therapy, Neuromuscular Re-education, Patient/Caregiver Education, Self-Care/Home Management,Soft Tissue Mobilization,Taping, Therapeutic Activities, Therapeutic Exercises Modalities Cold Pack/Ice Massage,Electric Stimulation,Hot Packs, Infrared Therapy,Traction- Mechanical,Ultrasound Other Therapeutic Interventions NMES for ankle DF Next Visit Focus/Plan Next Note Type Treatment Note Next Visit Plan STM on R glute, TFL, ant tib HEP for ankle DF, nerve glide glute activation NMES on ant tib if needed
--- NOTE | 2021-03-25 09:48 | PT.OTN ---
Current Diagnoses Arthrodesis status (03/25/21) Physical Therapy Treatment Note PT-OP-A Visit Information Start: 03/06/21 10:42 Freq: Status: Active Protocol: Document 03/25/21 09:03 HH (Rec: 03/25/21 09:48 [id number]) Out-Patient Physical Therapy Visit Information Visit Information Visit Type Treatment Note Visit Note Surgeon signed POC and stated please let them know if PT would like pt to be seen earlier 04/09 Visit Start Time 09:02 Visit Stop Time 09:55 Total Visit Minutes 53 Visit Number 01/27 Number of BATTERY MECHANIC Visits 0 PT-OP-B Current Condition Start: 03/06/21 10:42 Freq: Status: Active Protocol: Document 03/06/21 10:43 HH (Rec: 03/06/21 11:11 HH [email or web address]) Current Condition History of Current Condition Onset Date 01/06/21 Current Complaints s/p lumbar L4-L5 fusion, LBP, R leg pain, R foot slap History of Current Condition Emma is a 70 yo female here here for her rehab s/p 8 weeks Lumbar L4-L5 fusion. Pt has been having a new onset of radiating R leg pain (lateral knee to medial heel and big toe). She stated she only had mild radiating leg pain bilaterally, along with slight R foot weakness prior to surgery. Pt is having difficulty walking at this point with significant pain at R buttock during WB on RLE and new onset of R foot slap. Sitting and laying seem not to bother her. Pt has been taking Gabapentin at night and muscle relaxant for pain management. She also noticed her balance and overall LE strength have been decreasing. Pt did report to her surgeon Dr. Nesbitt and he stated that it is going to take at least 6 months for recovery. Prior Functional Status Baseline Function- Other pt was able to walk 3-5 miles /day and play pickle ball couple times a week Current Functional Impairments (Reported) Functional Limitations- Mobility/Gait pt is only able to walk up to 1-2 miles a day because of pain. PT-OP-C Subjective Start: 03/06/21 10:42 Freq: Status: Active Protocol: Document 03/25/21 09:03 HH (Rec: 03/25/21 09:48 HH [id number]) OP-PT Subjective Patient Comments Patient Comments I did 30 mins on the bike, 15 mins eliptical and leg press after on wednesday. I do feel im getting stronger so far. My sleep is getting better but slowly. Patient Reported Progress Improving PT-OP-D Balance Start: 03/06/21 10:42 Freq: Status: Active Protocol: Document 03/06/21 10:43 HH (Rec: 03/06/21 11:11 [email or web address]) Balance Tests Single Limb Standing Single Limb- Right <3s Single Limb- Left >25s PT-OP-F Manual Assessment Start: 03/06/21 10:42 Freq: Status: Active Protocol: Document 03/06/21 10:43 HH (Rec: 03/06/21 11:11 HH [email or web address]) Manual Assessments Soft Tissue Assessment Soft Tissue Mobility Assessment significant hypertonicity at R anterior tib and R TFL, and gluteal muscle group PT-OP-G Mobility & Gait Start: 03/06/21 10:42 Freq: Status: Active Protocol: Document 03/06/21 10:43 HH (Rec: 03/06/21 11:11 [email or web address]) OP Gait Assessment Gait Deviations General Gait Pattern Antalgic,Decreased Stride Length,Decreased Feet Clearance Factors Limiting Gait Function Factors Limiting Gait Function Decreased Activity Tolerance, Decreased Sensation,Decreased Strength,Limited Range of Motion,Pain,Poor Balance Comments Gait Comments significant antalgic sign on R LE during stance phase, R foot slap during heel strike. PT-OP-H Neuro Start: 03/06/21 10:42 Freq: Status: Active Protocol: Document 03/06/21 10:43 HH (Rec: 03/06/21 11:11 [email or web address]) Sensation Evaluation Gross Sensation Gross Sensation Right LE Impaired Sensation Description Numbness Dermatome Impairments L5 Deep Tendon Reflex & Clonus Assessment Deep Tendon Reflex Left Patellar Deep Tendon Reflex 2+ Normal Bilateral Achilles Deep Tendon Reflex 2+ Normal Right Patellar Deep Tendon Reflex 0 Absent PT-OP-K Range of Motion Start: 03/06/21 10:42 Freq: Status: Active Protocol: Document 03/06/21 10:43 HH (Rec: 03/06/21 11:11 [email or web address]) Ankle and Foot Goniometric Range of Motion Ankle and Foot Right Passive Ankle/Foot ROM WFL No Testing Position Supine Dorsiflexion with Knee Flexed 10 Dorsiflexion with Knee Extended 8 Right Active Ankle/Foot ROM WFL No Testing Position Supine Dorsiflexion with Knee Extended 0 Comments active DF = -5 Left Active Ankle/Foot ROM WFL Yes Testing Position Supine Dorsiflexion with Knee Flexed 7 Dorsiflexion with Knee Extended 5 PT-OP-L Special Tests Start: 03/06/21 10:42 Freq: Status: Active Protocol: Document 03/06/21 10:43 HH (Rec: 03/06/21 11:11 [email or web address]) Special Tests Lumbar Spine Special Tests Straight Leg Raise Test Results +VE R Comments ASLR up to 80, L = 95 Slump Test Results +VE R Comments radiating pain to buttock PT-OP-M Strength Start: 03/06/21 10:42 Freq: Status: Active Protocol: Document 03/06/21 10:43 HH (Rec: 03/06/21 11:11 [email or web address]) Hip Strength Hip Manual Muscle Testing Right Flexion (L2) 3+ Fair+ Extension (S1) 4- Good- Abduction 3+ Fair+ Adduction 4- Good- Left Flexion (L2) 5 Normal Extension (S1) 5 Normal Abduction 5 Normal Adduction 5 Normal Knee Strength Knee Manual Muscle Testing Right Flexion (S2) 4+ Good+ Extension (L3) 4+ Good+ Left Flexion (S2) 5 Normal Extension (L3) 5 Normal Ankle/Foot Strength Ankle and Foot Manual Muscle Testing Right Dorsiflexion (L4) 3+ Fair+ Plantarflexion (S1) 4+ Good+ Inversion 4+ Good+ Eversion (S1) 4+ Good+ Left Dorsiflexion (L4) 5 Normal Plantarflexion (S1) 5 Normal Inversion 5 Normal Eversion (S1) 5 Normal Toe Strength Toe Manual Muscle Testing Right Flexion 4- Good- Extension 4+ Good+ Left Great Toe Flexion 4+ Good+ Extension 4+ Good+ PT-OP-Q Treatments Start: 03/06/21 10:42 Freq: Status: Active Protocol: Document 03/25/21 09:03 HH (Rec: 03/25/21 09:48 [id number]) Cardio Equipment Recumbent Bicycle Duration (Minutes) 5 Resistance 5 Other no discomfort. Gym Equipment Shuttle Recovery SL squat Resistance #37 Shuttle Recovery Platform Stable Reps/Time 15 x 2 Therapeutic Exercises Supine Exercises 2 way ankle Supine Exercise Name resisted ankle EV and DF Side right Resistance red band bridging Supine Exercise Name review Equipment Used red band Reps/Minutes 10 x2 sciatic nerve glide Supine Exercise Name w DF Side right Reps/Minutes 10 Manual Therapy Treatment Soft Tissue Mobilization hip adductors Mobilization Type Rolling Intensity/Depth Moderate Body Position Hooklying Comments with roller on R hip adductors . ant tib Mobilization Type Myofascial Release,Sustained Pressure,Trigger Point Release Intensity/Depth Moderate Body Position Supine glute Body Location R Mobilization Type Myofascial Release,Sustained Pressure,Trigger Point Release Intensity/Depth Moderate Body Position Sidelying Comments some tonicity noted at R TFL and quad Manual Traction R hip Body Position Supine Reps/Duration 10 sec hold x10 Comments pt reports decompression sensation PT-OP-R Modalities Start: 03/06/21 10:42 Freq: Status: Active Protocol: Document 03/25/21 09:03 (Rec: 03/25/21 09:48 [id number]) Electric Stimulation Electric Stimulation [place] Stimulation Body Location R ant tib. Duration (Minutes) 10 Intensity 80 Cycle 10/10 Patient Position Sitting Comments with active DF during on pt shows improved induced activation of ant tib by e- stim. PT-OP-T Assessment and Plan Start: 03/06/21 10:42 Freq: Status: Active Protocol: Document 03/25/21 09:03 (Rec: 03/25/21 09:48 [id number]) Physical Therapy Assessment Goals gait mechanics Impairment antalgic sign with R foot slap Short Term Goal (STG) pt will strengthen her R ankle DF and big toe extension to improve her foot slap pattern during heel strike STG Duration 5 weeks Ad Operations Specialist Goal (LTG) pt will show improved R LE strength and stability to reduce her R antalgic sign during gait LTG Duration 10 weeks nerve tension Impairment +Ve for slump test and ASLR Short Term Goal (STG) pt will show improve pain and neural sensitivity without radiating pain to buttock for both slump and ASLR tests STG Duration 8 weeks Owestry Impairment pt scores 40 on Owestry Short Term Goal (STG) pt will be able to show improved mobility and strength by scoring 30 or less on Owestry STG Duration 5 weeks Ad Operations Specialist Goal (LTG) pt will be able to show improved mobility and strength by scoring 20 or less on Owestry LTG Duration 10 weeks Assessment Summary Assessment Pt reports she is doing better in general with increased activity toleance and reduce pain. Will update her HEP with more WB activities and hip stretches next visit. Physical Therapy Plan Frequency and Duration Frequency of Treatment 2x/Week Duration of Treatment 10 weeks Plan of Care Start Date 03/06/21 Plan of Care End Date 05/20/21 Therapeutic Interventions Therapeutic Interventions Aquatic Therapy,Balance Training,Gait Training,Home Exercise Program,Joint Mobilizations,Manual Therapy, Neuromuscular Re-education, Patient/Caregiver Education, Self-Care/Home Management,Soft Tissue Mobilization,Taping, Therapeutic Activities, Therapeutic Exercises Modalities Cold Pack/Ice Massage,Electric Stimulation,Hot Packs, Infrared Therapy,Traction- Mechanical,Ultrasound Other Therapeutic Interventions NMES for ankle DF Next Visit Focus/Plan Next Note Type Treatment Note Next Visit Plan STM on R glute, TFL, ant tib HEP for ankle DF, nerve glide glute activation NMES on ant tib if needed
--- NOTE | 2021-03-27 10:37 | PT.OTN ---
Current Diagnoses Arthrodesis status (03/27/21) Physical Therapy Treatment Note PT-OP-A Visit Information Start: 03/06/21 10:42 Freq: Status: Active Protocol: Document 03/27/21 09:46 HH (Rec: 03/27/21 10:37 [id number]) Out-Patient Physical Therapy Visit Information Visit Information Visit Type Treatment Note Visit Note Surgeon signed POC and stated please let them know if PT would like pt to be seen earlier 04/09 Visit Start Time 09:46 Visit Stop Time 10:30 Total Visit Minutes 44 Visit Number 02/27 Number of MORTAR MIXER Visits 0 PT-OP-B Current Condition Start: 03/06/21 10:42 Freq: Status: Active Protocol: Document 03/06/21 10:43 HH (Rec: 03/06/21 11:11 HH [email or web address]) Current Condition History of Current Condition Onset Date 01/06/21 Current Complaints s/p lumbar L4-L5 fusion, LBP, R leg pain, R foot slap History of Current Condition Emma is a 70 yo female here here for her rehab s/p 8 weeks Lumbar L4-L5 fusion. Pt has been having a new onset of radiating R leg pain (lateral knee to medial heel and big toe). She stated she only had mild radiating leg pain bilaterally, along with slight R foot weakness prior to surgery. Pt is having difficulty walking at this point with significant pain at R buttock during WB on RLE and new onset of R foot slap. Sitting and laying seem not to bother her. Pt has been taking Gabapentin at night and muscle relaxant for pain management. She also noticed her balance and overall LE strength have been decreasing. Pt did report to her surgeon Dr. Nesbitt and he stated that it is going to take at least 6 months for recovery. Prior Functional Status Baseline Function- Other pt was able to walk 3-5 miles /day and play pickle ball couple times a week Current Functional Impairments (Reported) Functional Limitations- Mobility/Gait pt is only able to walk up to 1-2 miles a day because of pain. PT-OP-C Subjective Start: 03/06/21 10:42 Freq: Status: Active Protocol: Document 03/27/21 09:46 HH (Rec: 03/27/21 10:37 [id number]) OP-PT Subjective Patient Comments Patient Comments I got my shoes with better heel drop. It feels a lot better with the heel pain and walking pattern. Patient Reported Progress Improving PT-OP-D Balance Start: 03/06/21 10:42 Freq: Status: Active Protocol: Document 03/06/21 10:43 HH (Rec: 03/06/21 11:11 [email or web address]) Balance Tests Single Limb Standing Single Limb- Right <3s Single Limb- Left >25s PT-OP-F Manual Assessment Start: 03/06/21 10:42 Freq: Status: Active Protocol: Document 03/06/21 10:43 HH (Rec: 03/06/21 11:11 [email or web address]) Manual Assessments Soft Tissue Assessment Soft Tissue Mobility Assessment significant hypertonicity at R anterior tib and R TFL, and gluteal muscle group PT-OP-G Mobility & Gait Start: 03/06/21 10:42 Freq: Status: Active Protocol: Document 03/06/21 10:43 HH (Rec: 03/06/21 11:11 [email or web address]) OP Gait Assessment Gait Deviations General Gait Pattern Antalgic,Decreased Stride Length,Decreased Feet Clearance Factors Limiting Gait Function Factors Limiting Gait Function Decreased Activity Tolerance, Decreased Sensation,Decreased Strength,Limited Range of Motion,Pain,Poor Balance Comments Gait Comments significant antalgic sign on R LE during stance phase, R foot slap during heel strike. PT-OP-H Neuro Start: 03/06/21 10:42 Freq: Status: Active Protocol: Document 03/06/21 10:43 HH (Rec: 03/06/21 11:11 [email or web address]) Sensation Evaluation Gross Sensation Gross Sensation Right LE Impaired Sensation Description Numbness Dermatome Impairments L5 Deep Tendon Reflex & Clonus Assessment Deep Tendon Reflex Left Patellar Deep Tendon Reflex 2+ Normal Bilateral Achilles Deep Tendon Reflex 2+ Normal Right Patellar Deep Tendon Reflex 0 Absent PT-OP-K Range of Motion Start: 03/06/21 10:42 Freq: Status: Active Protocol: Document 03/06/21 10:43 HH (Rec: 03/06/21 11:11 [email or web address]) Ankle and Foot Goniometric Range of Motion Ankle and Foot Right Passive Ankle/Foot ROM WFL No Testing Position Supine Dorsiflexion with Knee Flexed 10 Dorsiflexion with Knee Extended 8 Right Active Ankle/Foot ROM WFL No Testing Position Supine Dorsiflexion with Knee Extended 0 Comments active DF = -5 Left Active Ankle/Foot ROM WFL Yes Testing Position Supine Dorsiflexion with Knee Flexed 7 Dorsiflexion with Knee Extended 5 PT-OP-L Special Tests Start: 03/06/21 10:42 Freq: Status: Active Protocol: Document 03/06/21 10:43 HH (Rec: 03/06/21 11:11 [email or web address]) Special Tests Lumbar Spine Special Tests Straight Leg Raise Test Results +VE R Comments ASLR up to 80, L = 95 Slump Test Results +VE R Comments radiating pain to buttock PT-OP-M Strength Start: 03/06/21 10:42 Freq: Status: Active Protocol: Document 03/06/21 10:43 HH (Rec: 03/06/21 11:11 [email or web address]) Hip Strength Hip Manual Muscle Testing Right Flexion (L2) 3+ Fair+ Extension (S1) 4- Good- Abduction 3+ Fair+ Adduction 4- Good- Left Flexion (L2) 5 Normal Extension (S1) 5 Normal Abduction 5 Normal Adduction 5 Normal Knee Strength Knee Manual Muscle Testing Right Flexion (S2) 4+ Good+ Extension (L3) 4+ Good+ Left Flexion (S2) 5 Normal Extension (L3) 5 Normal Ankle/Foot Strength Ankle and Foot Manual Muscle Testing Right Dorsiflexion (L4) 3+ Fair+ Plantarflexion (S1) 4+ Good+ Inversion 4+ Good+ Eversion (S1) 4+ Good+ Left Dorsiflexion (L4) 5 Normal Plantarflexion (S1) 5 Normal Inversion 5 Normal Eversion (S1) 5 Normal Toe Strength Toe Manual Muscle Testing Right Flexion 4- Good- Extension 4+ Good+ Left Great Toe Flexion 4+ Good+ Extension 4+ Good+ PT-OP-Q Treatments Start: 03/06/21 10:42 Freq: Status: Active Protocol: Document 03/27/21 09:46 HH (Rec: 03/27/21 10:37 [id number]) Cardio Equipment Bicycle (Upright) Duration (Minutes) 5 Resistance 5 Other no discomfort Gym Equipment Shuttle Recovery SL squat Resistance #37 Shuttle Recovery Platform Stable Reps/Time 15 x 2 Therapeutic Exercises Supine Exercises LTR Reps/Minutes 10 x2 Comments for HEP piriformis stretch Reps/Minutes 10s x 5 Comments for HEP bridging Supine Exercise Name review Equipment Used red band Reps/Minutes 10 x2 Sitting Exercises ankle DF Resistance level 2 band Reps/Minutes 10 x2 Standing Exercises calf raises Reps/Minutes 10x2 Comments for HEP squat Equipment Used level 2 band on knees Reps/Minutes 10 x2 Comments for HEP Gait Training Gait Activity heel toe Device Used next to wall for support Level of Assistance SBA Surface ground level Distance/Duration 20ft x 2 Manual Therapy Treatment Soft Tissue Mobilization ant tib Mobilization Type Myofascial Release,Sustained Pressure,Trigger Point Release Intensity/Depth Moderate Body Position Supine Manual Traction R hip Body Position Supine Reps/Duration 10 sec hold x10 Comments pt reports decompression sensation PT-OP-R Modalities Start: 03/06/21 10:42 Freq: Status: Active Protocol: Document 03/25/21 09:03 HH (Rec: 03/25/21 09:48 HH [id number]) Electric Stimulation Electric Stimulation [place] Stimulation Body Location R ant tib. Duration (Minutes) 10 Intensity 80 Cycle 10/10 Patient Position Sitting Comments with active DF during on pt shows improved induced activation of ant tib by e- stim. PT-OP-T Assessment and Plan Start: 03/06/21 10:42 Freq: Status: Active Protocol: Document 03/27/21 09:46 HH (Rec: 03/27/21 10:37 [id number]) Physical Therapy Assessment Goals gait mechanics Impairment antalgic sign with R foot slap Short Term Goal (STG) pt will strengthen her R ankle DF and big toe extension to improve her foot slap pattern during heel strike STG Duration 5 weeks Care Nurse Rn Goal (LTG) pt will show improved R LE strength and stability to reduce her R antalgic sign during gait LTG Duration 10 weeks nerve tension Impairment +Ve for slump test and ASLR Short Term Goal (STG) pt will show improve pain and neural sensitivity without radiating pain to buttock for both slump and ASLR tests STG Duration 8 weeks Owestry Impairment pt scores 40 on Owestry Short Term Goal (STG) pt will be able to show improved mobility and strength by scoring 30 or less on Owestry STG Duration 5 weeks Snf Goal (LTG) pt will be able to show improved mobility and strength by scoring 20 or less on Owestry LTG Duration 10 weeks Assessment Summary Assessment pt brought in new shoes today with better heel lateral support and heel drop. She has close to normal gait pattern with mild trendelenburg sign. Updated her HEP with focus on hip stretches, WB leg strengthening ex and balance ex. She deb session very well Physical Therapy Plan Frequency and Duration Frequency of Treatment 2x/Week Duration of Treatment 10 weeks Plan of Care Start Date 03/06/21 Plan of Care End Date 05/20/21 Therapeutic Interventions Therapeutic Interventions Aquatic Therapy,Balance Training,Gait Training,Home Exercise Program,Joint Mobilizations,Manual Therapy, Neuromuscular Re-education, Patient/Caregiver Education, Self-Care/Home Management,Soft Tissue Mobilization,Taping, Therapeutic Activities, Therapeutic Exercises Modalities Cold Pack/Ice Massage,Electric Stimulation,Hot Packs, Infrared Therapy,Traction- Mechanical,Ultrasound Other Therapeutic Interventions NMES for ankle DF Next Visit Focus/Plan Next Note Type Treatment Note Next Visit Plan STM on R glute, TFL, ant tib HEP for ankle DF, nerve glide glute activation NMES on ant tib if needed
--- NOTE | 2021-04-02 12:16 | PT.OTN ---
Current Diagnoses Arthrodesis status (04/02/21) Physical Therapy Treatment Note PT-OP-A Visit Information Start: 03/06/21 10:42 Freq: Status: Active Protocol: Document 04/02/21 10:35 HH (Rec: 04/02/21 12:15 [id number]) Out-Patient Physical Therapy Visit Information Visit Information Visit Type Progress Note Visit Note pt is going to see surgeon Visit Start Time 10:33 Visit Stop Time 11:26 Total Visit Minutes 53 Visit Number 03/30 Number of PROPOSAL SPECIALIST Visits 0 PT-OP-B Current Condition Start: 03/06/21 10:42 Freq: Status: Active Protocol: Document 03/06/21 10:43 HH (Rec: 03/06/21 11:11 HH [email or web address]) Current Condition History of Current Condition Onset Date 01/06/21 Current Complaints s/p lumbar L4-L5 fusion, LBP, R leg pain, R foot slap History of Current Condition Emma is a 70 yo female here here for her rehab s/p 8 weeks Lumbar L4-L5 fusion. Pt has been having a new onset of radiating R leg pain (lateral knee to medial heel and big toe). She stated she only had mild radiating leg pain bilaterally, along with slight R foot weakness prior to surgery. Pt is having difficulty walking at this point with significant pain at R buttock during WB on RLE and new onset of R foot slap. Sitting and laying seem not to bother her. Pt has been taking Gabapentin at night and muscle relaxant for pain management. She also noticed her balance and overall LE strength have been decreasing. Pt did report to her surgeon Dr. Nesbitt and he stated that it is going to take at least 6 months for recovery. Prior Functional Status Baseline Function- Other pt was able to walk 3-5 miles /day and play pickle ball couple times a week Current Functional Impairments (Reported) Functional Limitations- Mobility/Gait pt is only able to walk up to 1-2 miles a day because of pain. PT-OP-C Subjective Start: 03/06/21 10:42 Freq: Status: Active Protocol: Document 04/02/21 10:35 HH (Rec: 04/02/21 12:15 HH [id number]) OP-PT Subjective Patient Comments Patient Comments I definitely improve a lot. Priya been able to sleep better. I dont really have the burning night pain on the collins . I still have to take gabapentin at night only now. Priya going to the gym everyday now. And I was able to reach 10k steps for the past few days. Patient Reported Progress Improving Patient Questionnaires Oswestry Low Back Index Oswestry Score 28 Oswestry Impairment 20 to 39% Impaired (Score 20- 39) PT-OP-D Balance Start: 03/06/21 10:42 Freq: Status: Active Protocol: Document 03/06/21 10:43 HH (Rec: 03/06/21 11:11 [email or web address]) Balance Tests Single Limb Standing Single Limb- Right <3s Single Limb- Left >25s PT-OP-F Manual Assessment Start: 03/06/21 10:42 Freq: Status: Active Protocol: Document 03/06/21 10:43 HH (Rec: 03/06/21 11:11 [email or web address]) Manual Assessments Soft Tissue Assessment Soft Tissue Mobility Assessment significant hypertonicity at R anterior tib and R TFL, and gluteal muscle group PT-OP-G Mobility & Gait Start: 03/06/21 10:42 Freq: Status: Active Protocol: Document 03/06/21 10:43 HH (Rec: 03/06/21 11:11 [email or web address]) OP Gait Assessment Gait Deviations General Gait Pattern Antalgic,Decreased Stride Length,Decreased Feet Clearance Factors Limiting Gait Function Factors Limiting Gait Function Decreased Activity Tolerance, Decreased Sensation,Decreased Strength,Limited Range of Motion,Pain,Poor Balance Comments Gait Comments significant antalgic sign on R LE during stance phase, R foot slap during heel strike. PT-OP-H Neuro Start: 03/06/21 10:42 Freq: Status: Active Protocol: Document 03/06/21 10:43 HH (Rec: 03/06/21 11:11 [email or web address]) Sensation Evaluation Gross Sensation Gross Sensation Right LE Impaired Sensation Description Numbness Dermatome Impairments L5 Deep Tendon Reflex & Clonus Assessment Deep Tendon Reflex Left Patellar Deep Tendon Reflex 2+ Normal Bilateral Achilles Deep Tendon Reflex 2+ Normal Right Patellar Deep Tendon Reflex 0 Absent PT-OP-K Range of Motion Start: 03/06/21 10:42 Freq: Status: Active Protocol: Document 03/06/21 10:43 HH (Rec: 03/06/21 11:11 [email or web address]) Ankle and Foot Goniometric Range of Motion Ankle and Foot Right Passive Ankle/Foot ROM WFL No Testing Position Supine Dorsiflexion with Knee Flexed 10 Dorsiflexion with Knee Extended 8 Right Active Ankle/Foot ROM WFL No Testing Position Supine Dorsiflexion with Knee Extended 0 Comments active DF = -5 Left Active Ankle/Foot ROM WFL Yes Testing Position Supine Dorsiflexion with Knee Flexed 7 Dorsiflexion with Knee Extended 5 PT-OP-L Special Tests Start: 03/06/21 10:42 Freq: Status: Active Protocol: Document 03/06/21 10:43 HH (Rec: 03/06/21 11:11 [email or web address]) Special Tests Lumbar Spine Special Tests Straight Leg Raise Test Results +VE R Comments ASLR up to 80, L = 95 Slump Test Results +VE R Comments radiating pain to buttock PT-OP-M Strength Start: 03/06/21 10:42 Freq: Status: Active Protocol: Document 03/06/21 10:43 HH (Rec: 03/06/21 11:11 [email or web address]) Hip Strength Hip Manual Muscle Testing Right Flexion (L2) 3+ Fair+ Extension (S1) 4- Good- Abduction 3+ Fair+ Adduction 4- Good- Left Flexion (L2) 5 Normal Extension (S1) 5 Normal Abduction 5 Normal Adduction 5 Normal Knee Strength Knee Manual Muscle Testing Right Flexion (S2) 4+ Good+ Extension (L3) 4+ Good+ Left Flexion (S2) 5 Normal Extension (L3) 5 Normal Ankle/Foot Strength Ankle and Foot Manual Muscle Testing Right Dorsiflexion (L4) 3+ Fair+ Plantarflexion (S1) 4+ Good+ Inversion 4+ Good+ Eversion (S1) 4+ Good+ Left Dorsiflexion (L4) 5 Normal Plantarflexion (S1) 5 Normal Inversion 5 Normal Eversion (S1) 5 Normal Toe Strength Toe Manual Muscle Testing Right Flexion 4- Good- Extension 4+ Good+ Left Great Toe Flexion 4+ Good+ Extension 4+ Good+ PT-OP-Q Treatments Start: 03/06/21 10:42 Freq: Status: Active Protocol: Document 04/02/21 10:35 HH (Rec: 04/02/21 12:15 [id number]) Cardio Equipment Bicycle (Upright) Duration (Minutes) 5 Resistance 5 Other no discomfort Therapeutic Exercises Standing Exercises toe raises Reps/Minutes 10 x2 calf raises Reps/Minutes 10x2 Comments for HEP squat Equipment Used level 2 band on knees Reps/Minutes 10 x2 Comments for HEP Manual Therapy Treatment Soft Tissue Mobilization ant tib Body Location & peroneal Mobilization Type Myofascial Release,Sustained Pressure,Trigger Point Release Intensity/Depth Moderate Body Position Supine Manual Traction R hip Body Position Supine Reps/Duration 10 sec hold x10 Comments pt reports decompression sensation PT-OP-R Modalities Start: 03/06/21 10:42 Freq: Status: Active Protocol: Document 04/02/21 10:35 (Rec: 04/02/21 12:15 [id number]) Electric Stimulation Electric Stimulation [place] Stimulation Body Location R ant tib. Duration (Minutes) 10 Intensity 80 Cycle 10/10 Patient Position Sitting Comments with active DF during on pt shows improved induced activation of ant tib by e- stim. PT-OP-T Assessment and Plan Start: 03/06/21 10:42 Freq: Status: Active Protocol: Document 04/02/21 10:35 (Rec: 04/02/21 12:15 [id number]) Physical Therapy Assessment Goals gait mechanics Impairment antalgic sign with R foot slap Short Term Goal (STG) pt will strengthen her R ankle DF and big toe extension to improve her foot slap pattern during heel strike STG Duration 5 weeks Bail Agent Goal (LTG) 04/02 pt will show improved R LE strength and stability to reduce her R antalgic sign during gait LTG Duration 10 weeks nerve tension Impairment +Ve for slump test and ASLR Short Term Goal (STG) pt will show improve pain and neural sensitivity without radiating pain to buttock for both slump and ASLR tests STG Duration 8 weeks Bail Agent Goal (LTG) 04/02/21 no discomfort noted. Owestry Impairment pt scores 40 on Owestry Short Term Goal (STG) pt will be able to show improved mobility and strength by scoring 30 or less on Owestry STG Duration 5 weeks Senior Care Goal (LTG) 04/03 pt scores 28 on Owestry. Pt will be able to show improved mobility and strength by scoring 20 or less on Owestry LTG Duration 10 weeks Assessment Summary Assessment pt has shown progress with less radiating pain and antalgic sign. However, pt's R ankle DF is still lack of 5-8 degrees compared to L. She is still having burning pain at lateral ankle at night who needs to take gabapentin to managae that. Pt will see surgeon on 04/09. Physical Therapy Plan Frequency and Duration Frequency of Treatment 2x/Week Duration of Treatment 10 weeks Plan of Care Start Date 03/06/21 Plan of Care End Date 05/20/21 Therapeutic Interventions Therapeutic Interventions Aquatic Therapy,Balance Training,Gait Training,Home Exercise Program,Joint Mobilizations,Manual Therapy, Neuromuscular Re-education, Patient/Caregiver Education, Self-Care/Home Management,Soft Tissue Mobilization,Taping, Therapeutic Activities, Therapeutic Exercises Modalities Cold Pack/Ice Massage,Electric Stimulation,Hot Packs, Infrared Therapy,Traction- Mechanical,Ultrasound Other Therapeutic Interventions NMES for ankle DF Next Visit Focus/Plan Next Note Type Treatment Note Next Visit Plan STM on R glute, TFL, ant tib HEP for ankle DF, nerve glide glute activation NMES on ant tib if needed
--- NOTE | 2021-04-04 10:30 | PT.OTN ---
Current Diagnoses Arthrodesis status (04/04/21) Physical Therapy Treatment Note PT-OP-A Visit Information Start: 03/06/21 10:42 Freq: Status: Active Protocol: Document 04/04/21 09:13 HH (Rec: 04/04/21 10:30 [id number]) Out-Patient Physical Therapy Visit Information Visit Information Visit Type Treatment Note Visit Note pt is going to see surgeon Visit Start Time 09:45 Visit Stop Time 10:40 Total Visit Minutes 55 Visit Number 04/29 Number of R D INTERNSHIP Visits 0 PT-OP-B Current Condition Start: 03/06/21 10:42 Freq: Status: Active Protocol: Document 03/06/21 10:43 HH (Rec: 03/06/21 11:11 HH [email or web address]) Current Condition History of Current Condition Onset Date 01/06/21 Current Complaints s/p lumbar L4-L5 fusion, LBP, R leg pain, R foot slap History of Current Condition Emma is a 70 yo female here here for her rehab s/p 8 weeks Lumbar L4-L5 fusion. Pt has been having a new onset of radiating R leg pain (lateral knee to medial heel and big toe). She stated she only had mild radiating leg pain bilaterally, along with slight R foot weakness prior to surgery. Pt is having difficulty walking at this point with significant pain at R buttock during WB on RLE and new onset of R foot slap. Sitting and laying seem not to bother her. Pt has been taking Gabapentin at night and muscle relaxant for pain management. She also noticed her balance and overall LE strength have been decreasing. Pt did report to her surgeon Dr. Nesbitt and he stated that it is going to take at least 6 months for recovery. Prior Functional Status Baseline Function- Other pt was able to walk 3-5 miles /day and play pickle ball couple times a week Current Functional Impairments (Reported) Functional Limitations- Mobility/Gait pt is only able to walk up to 1-2 miles a day because of pain. PT-OP-C Subjective Start: 03/06/21 10:42 Freq: Status: Active Protocol: Document 04/04/21 09:13 HH (Rec: 04/04/21 10:30 [id number]) OP-PT Subjective Patient Comments Patient Comments i havent had much of the burning sensation at my last 2 nights after trying the nerve glide with my ankle roll in. Patient Reported Progress Improving PT-OP-D Balance Start: 03/06/21 10:42 Freq: Status: Active Protocol: Document 03/06/21 10:43 HH (Rec: 03/06/21 11:11 [email or web address]) Balance Tests Single Limb Standing Single Limb- Right <3s Single Limb- Left >25s PT-OP-F Manual Assessment Start: 03/06/21 10:42 Freq: Status: Active Protocol: Document 03/06/21 10:43 HH (Rec: 03/06/21 11:11 [email or web address]) Manual Assessments Soft Tissue Assessment Soft Tissue Mobility Assessment significant hypertonicity at R anterior tib and R TFL, and gluteal muscle group PT-OP-G Mobility & Gait Start: 03/06/21 10:42 Freq: Status: Active Protocol: Document 03/06/21 10:43 HH (Rec: 03/06/21 11:11 [email or web address]) OP Gait Assessment Gait Deviations General Gait Pattern Antalgic,Decreased Stride Length,Decreased Feet Clearance Factors Limiting Gait Function Factors Limiting Gait Function Decreased Activity Tolerance, Decreased Sensation,Decreased Strength,Limited Range of Motion,Pain,Poor Balance Comments Gait Comments significant antalgic sign on R LE during stance phase, R foot slap during heel strike. PT-OP-H Neuro Start: 03/06/21 10:42 Freq: Status: Active Protocol: Document 03/06/21 10:43 HH (Rec: 03/06/21 11:11 [email or web address]) Sensation Evaluation Gross Sensation Gross Sensation Right LE Impaired Sensation Description Numbness Dermatome Impairments L5 Deep Tendon Reflex & Clonus Assessment Deep Tendon Reflex Left Patellar Deep Tendon Reflex 2+ Normal Bilateral Achilles Deep Tendon Reflex 2+ Normal Right Patellar Deep Tendon Reflex 0 Absent PT-OP-K Range of Motion Start: 03/06/21 10:42 Freq: Status: Active Protocol: Document 03/06/21 10:43 HH (Rec: 03/06/21 11:11 [email or web address]) Ankle and Foot Goniometric Range of Motion Ankle and Foot Right Passive Ankle/Foot ROM WFL No Testing Position Supine Dorsiflexion with Knee Flexed 10 Dorsiflexion with Knee Extended 8 Right Active Ankle/Foot ROM WFL No Testing Position Supine Dorsiflexion with Knee Extended 0 Comments active DF = -5 Left Active Ankle/Foot ROM WFL Yes Testing Position Supine Dorsiflexion with Knee Flexed 7 Dorsiflexion with Knee Extended 5 PT-OP-L Special Tests Start: 03/06/21 10:42 Freq: Status: Active Protocol: Document 03/06/21 10:43 HH (Rec: 03/06/21 11:11 [email or web address]) Special Tests Lumbar Spine Special Tests Straight Leg Raise Test Results +VE R Comments ASLR up to 80, L = 95 Slump Test Results +VE R Comments radiating pain to buttock PT-OP-M Strength Start: 03/06/21 10:42 Freq: Status: Active Protocol: Document 03/06/21 10:43 HH (Rec: 03/06/21 11:11 [email or web address]) Hip Strength Hip Manual Muscle Testing Right Flexion (L2) 3+ Fair+ Extension (S1) 4- Good- Abduction 3+ Fair+ Adduction 4- Good- Left Flexion (L2) 5 Normal Extension (S1) 5 Normal Abduction 5 Normal Adduction 5 Normal Knee Strength Knee Manual Muscle Testing Right Flexion (S2) 4+ Good+ Extension (L3) 4+ Good+ Left Flexion (S2) 5 Normal Extension (L3) 5 Normal Ankle/Foot Strength Ankle and Foot Manual Muscle Testing Right Dorsiflexion (L4) 3+ Fair+ Plantarflexion (S1) 4+ Good+ Inversion 4+ Good+ Eversion (S1) 4+ Good+ Left Dorsiflexion (L4) 5 Normal Plantarflexion (S1) 5 Normal Inversion 5 Normal Eversion (S1) 5 Normal Toe Strength Toe Manual Muscle Testing Right Flexion 4- Good- Extension 4+ Good+ Left Great Toe Flexion 4+ Good+ Extension 4+ Good+ PT-OP-Q Treatments Start: 03/06/21 10:42 Freq: Status: Active Protocol: Document 04/04/21 09:13 HH (Rec: 04/04/21 10:30 HH [id number]) Cardio Equipment Bicycle (Upright) Duration (Minutes) 5 Resistance 5 Other no discomfort Gym Equipment Shuttle Recovery SL squat Resistance #50 Shuttle Recovery Platform Stable Reps/Time 12x2, reports LLE is 40 % weaker Therapeutic Exercises Supine Exercises bridging Supine Exercise Name review Equipment Used red band Reps/Minutes 10 x2, 3 sec hold. Comments 10 x2 sciatic nerve glide Supine Exercise Name w DF and inv for sural nerve bias Side right Reps/Minutes 10x2 Sidelying Exercises hip abd Side bilateral Reps/Minutes 8x2 Comments for HEP Standing Exercises toe raises Reps/Minutes 20x1 squat Equipment Used level 2 band on knees Reps/Minutes 10 x2 Comments for HEP Manual Therapy Treatment Soft Tissue Mobilization ant tib Body Location & peroneal Mobilization Type Myofascial Release,Sustained Pressure,Trigger Point Release Intensity/Depth Moderate Body Position Supine Comments reduced tonicity noted. Manual Traction R hip Body Position Supine Reps/Duration 10 sec hold x10 Comments pt reports decompression sensation PT-OP-R Modalities Start: 03/06/21 10:42 Freq: Status: Active Protocol: Document 04/04/21 09:13 (Rec: 04/04/21 10:30 [id number]) Electric Stimulation Electric Stimulation [place] Stimulation Body Location R ant tib. Duration (Minutes) 10 Intensity 80 Cycle 10/10 Patient Position Sitting Comments with active DF during on pt shows improved induced activation of ant tib by e- stim. PT-OP-T Assessment and Plan Start: 03/06/21 10:42 Freq: Status: Active Protocol: Document 04/04/21 09:13 (Rec: 04/04/21 10:30 [id number]) Physical Therapy Assessment Goals gait mechanics Impairment antalgic sign with R foot slap Short Term Goal (STG) pt will strengthen her R ankle DF and big toe extension to improve her foot slap pattern during heel strike STG Duration 5 weeks Snf Goal (LTG) 04/02 pt will show improved R LE strength and stability to reduce her R antalgic sign during gait LTG Duration 10 weeks nerve tension Impairment +Ve for slump test and ASLR Short Term Goal (STG) pt will show improve pain and neural sensitivity without radiating pain to buttock for both slump and ASLR tests STG Duration 8 weeks Outpatient Physical Therapist Assistant Goal (LTG) 04/02/21 no discomfort noted. Owestry Impairment pt scores 40 on Owestry Short Term Goal (STG) pt will be able to show improved mobility and strength by scoring 30 or less on Owestry STG Duration 5 weeks Snf Goal (LTG) 04/03 pt scores 28 on Owestry. Pt will be able to show improved mobility and strength by scoring 20 or less on Owestry LTG Duration 10 weeks Assessment Summary Assessment pt reports improved night pain after practicing sural nerve glide. Progress to SL hip abduction and leg press up to 50lbs today. Pt deb session well Physical Therapy Plan Frequency and Duration Frequency of Treatment 2x/Week Duration of Treatment 10 weeks Plan of Care Start Date 03/06/21 Plan of Care End Date 05/20/21 Therapeutic Interventions Therapeutic Interventions Aquatic Therapy,Balance Training,Gait Training,Home Exercise Program,Joint Mobilizations,Manual Therapy, Neuromuscular Re-education, Patient/Caregiver Education, Self-Care/Home Management,Soft Tissue Mobilization,Taping, Therapeutic Activities, Therapeutic Exercises Modalities Cold Pack/Ice Massage,Electric Stimulation,Hot Packs, Infrared Therapy,Traction- Mechanical,Ultrasound Other Therapeutic Interventions NMES for ankle DF Next Visit Focus/Plan Next Note Type Treatment Note Next Visit Plan STM on R glute, TFL, ant tib HEP for ankle DF, nerve glide glute activation NMES on ant tib if needed
--- NOTE | 2021-04-07 12:22 | PT.OTN ---
Current Diagnoses Arthrodesis status (04/07/21) Physical Therapy Treatment Note PT-OP-A Visit Information Start: 03/06/21 10:42 Freq: Status: Active Protocol: Document 04/07/21 09:50 HH (Rec: 04/07/21 12:21 [id number]) Out-Patient Physical Therapy Visit Information Visit Information Visit Type Treatment Note Visit Note pt is going to see surgeon Visit Start Time 09:48 Visit Stop Time 10:41 Total Visit Minutes 53 Visit Number 05/30 Number of RETAIL SHIFT LEADER Visits 0 PT-OP-B Current Condition Start: 03/06/21 10:42 Freq: Status: Active Protocol: Document 03/06/21 10:43 HH (Rec: 03/06/21 11:11 HH [email or web address]) Current Condition History of Current Condition Onset Date 01/06/21 Current Complaints s/p lumbar L4-L5 fusion, LBP, R leg pain, R foot slap History of Current Condition Emma is a 70 yo female here here for her rehab s/p 8 weeks Lumbar L4-L5 fusion. Pt has been having a new onset of radiating R leg pain (lateral knee to medial heel and big toe). She stated she only had mild radiating leg pain bilaterally, along with slight R foot weakness prior to surgery. Pt is having difficulty walking at this point with significant pain at R buttock during WB on RLE and new onset of R foot slap. Sitting and laying seem not to bother her. Pt has been taking Gabapentin at night and muscle relaxant for pain management. She also noticed her balance and overall LE strength have been decreasing. Pt did report to her surgeon Dr. Nesbitt and he stated that it is going to take at least 6 months for recovery. Prior Functional Status Baseline Function- Other pt was able to walk 3-5 miles /day and play pickle ball couple times a week Current Functional Impairments (Reported) Functional Limitations- Mobility/Gait pt is only able to walk up to 1-2 miles a day because of pain. PT-OP-C Subjective Start: 03/06/21 10:42 Freq: Status: Active Protocol: Document 04/07/21 09:50 HH (Rec: 04/07/21 12:21 [id number]) OP-PT Subjective Patient Comments Patient Comments I walked 2.5 miles in the morning and afternoon on Wednesday and i was doing pretty good except soreness at the R ankle after. The numbness /burning pain at night has gotten a lot better. Patient Reported Progress Improving PT-OP-D Balance Start: 03/06/21 10:42 Freq: Status: Active Protocol: Document 03/06/21 10:43 HH (Rec: 03/06/21 11:11 [email or web address]) Balance Tests Single Limb Standing Single Limb- Right <3s Single Limb- Left >25s PT-OP-F Manual Assessment Start: 03/06/21 10:42 Freq: Status: Active Protocol: Document 03/06/21 10:43 HH (Rec: 03/06/21 11:11 [email or web address]) Manual Assessments Soft Tissue Assessment Soft Tissue Mobility Assessment significant hypertonicity at R anterior tib and R TFL, and gluteal muscle group PT-OP-G Mobility & Gait Start: 03/06/21 10:42 Freq: Status: Active Protocol: Document 03/06/21 10:43 HH (Rec: 03/06/21 11:11 [email or web address]) OP Gait Assessment Gait Deviations General Gait Pattern Antalgic,Decreased Stride Length,Decreased Feet Clearance Factors Limiting Gait Function Factors Limiting Gait Function Decreased Activity Tolerance, Decreased Sensation,Decreased Strength,Limited Range of Motion,Pain,Poor Balance Comments Gait Comments significant antalgic sign on R LE during stance phase, R foot slap during heel strike. PT-OP-H Neuro Start: 03/06/21 10:42 Freq: Status: Active Protocol: Document 03/06/21 10:43 HH (Rec: 03/06/21 11:11 [email or web address]) Sensation Evaluation Gross Sensation Gross Sensation Right LE Impaired Sensation Description Numbness Dermatome Impairments L5 Deep Tendon Reflex & Clonus Assessment Deep Tendon Reflex Left Patellar Deep Tendon Reflex 2+ Normal Bilateral Achilles Deep Tendon Reflex 2+ Normal Right Patellar Deep Tendon Reflex 0 Absent PT-OP-K Range of Motion Start: 03/06/21 10:42 Freq: Status: Active Protocol: Document 03/06/21 10:43 HH (Rec: 03/06/21 11:11 [email or web address]) Ankle and Foot Goniometric Range of Motion Ankle and Foot Right Passive Ankle/Foot ROM WFL No Testing Position Supine Dorsiflexion with Knee Flexed 10 Dorsiflexion with Knee Extended 8 Right Active Ankle/Foot ROM WFL No Testing Position Supine Dorsiflexion with Knee Extended 0 Comments active DF = -5 Left Active Ankle/Foot ROM WFL Yes Testing Position Supine Dorsiflexion with Knee Flexed 7 Dorsiflexion with Knee Extended 5 PT-OP-L Special Tests Start: 03/06/21 10:42 Freq: Status: Active Protocol: Document 03/06/21 10:43 HH (Rec: 03/06/21 11:11 [email or web address]) Special Tests Lumbar Spine Special Tests Straight Leg Raise Test Results +VE R Comments ASLR up to 80, L = 95 Slump Test Results +VE R Comments radiating pain to buttock PT-OP-M Strength Start: 03/06/21 10:42 Freq: Status: Active Protocol: Document 03/06/21 10:43 HH (Rec: 03/06/21 11:11 [email or web address]) Hip Strength Hip Manual Muscle Testing Right Flexion (L2) 3+ Fair+ Extension (S1) 4- Good- Abduction 3+ Fair+ Adduction 4- Good- Left Flexion (L2) 5 Normal Extension (S1) 5 Normal Abduction 5 Normal Adduction 5 Normal Knee Strength Knee Manual Muscle Testing Right Flexion (S2) 4+ Good+ Extension (L3) 4+ Good+ Left Flexion (S2) 5 Normal Extension (L3) 5 Normal Ankle/Foot Strength Ankle and Foot Manual Muscle Testing Right Dorsiflexion (L4) 3+ Fair+ Plantarflexion (S1) 4+ Good+ Inversion 4+ Good+ Eversion (S1) 4+ Good+ Left Dorsiflexion (L4) 5 Normal Plantarflexion (S1) 5 Normal Inversion 5 Normal Eversion (S1) 5 Normal Toe Strength Toe Manual Muscle Testing Right Flexion 4- Good- Extension 4+ Good+ Left Great Toe Flexion 4+ Good+ Extension 4+ Good+ PT-OP-Q Treatments Start: 03/06/21 10:42 Freq: Status: Active Protocol: Document 04/07/21 09:50 HH (Rec: 04/07/21 12:21 [id number]) Therapeutic Exercises Supine Exercises SLR Reps/Minutes 10 x2 Comments no discomfort. sciatic nerve glide Supine Exercise Name w DF and inv for sural nerve bias Side right Reps/Minutes 10x2 Sitting Exercises LAQ Side right Equipment Used 5 lbs ankle Reps/Minutes 10 x2 Standing Exercises squat Standing Exercise Name 4 stool underneath L foot. Equipment Used level 2 band on knees Reps/Minutes 10 x2 Comments for HEP Manual Therapy Treatment Soft Tissue Mobilization R quad Body Location IT band and R lateral quad Mobilization Type Myofascial Release,Sustained Pressure,Trigger Point Release Intensity/Depth Moderate Body Position Sidelying Manual Traction R hip Body Position Supine Reps/Duration 10 sec hold x10 Comments pt reports decompression sensation PT-OP-R Modalities Start: 03/06/21 10:42 Freq: Status: Active Protocol: Document 04/07/21 09:50 HH (Rec: 04/07/21 12:21 [id number]) Electric Stimulation Electric Stimulation Ethiopian Stimulation Body Location R ant tib. Duration (Minutes) 10 Intensity 80 Cycle 10/10 Patient Position Sitting Comments with active DF during on pt shows improved induced activation of ant tib by e- stim. PT-OP-T Assessment and Plan Start: 03/06/21 10:42 Freq: Status: Active Protocol: Document 04/07/21 09:50 HH (Rec: 04/07/21 12:21 [id number]) Physical Therapy Assessment Goals gait mechanics Impairment antalgic sign with R foot slap Short Term Goal (STG) pt will strengthen her R ankle DF and big toe extension to improve her foot slap pattern during heel strike STG Duration 5 weeks Installation And Service Technician Goal (LTG) 04/02 pt will show improved R LE strength and stability to reduce her R antalgic sign during gait LTG Duration 10 weeks nerve tension Impairment +Ve for slump test and ASLR Short Term Goal (STG) pt will show improve pain and neural sensitivity without radiating pain to buttock for both slump and ASLR tests STG Duration 8 weeks Longterm Goal (LTG) 04/02/21 no discomfort noted. Owestry Impairment pt scores 40 on Owestry Short Term Goal (STG) pt will be able to show improved mobility and strength by scoring 30 or less on Owestry STG Duration 5 weeks Installation And Service Technician Goal (LTG) 04/03 pt scores 28 on Owestry. Pt will be able to show improved mobility and strength by scoring 20 or less on Owestry LTG Duration 10 weeks Assessment Summary Assessment Pt shows improved neural tension in general. Added squatting today with emphasis on WB via RLE. Pt deb well and she is going to see surgeon on Wed. Physical Therapy Plan Frequency and Duration Frequency of Treatment 2x/Week Duration of Treatment 10 weeks Plan of Care Start Date 03/06/21 Plan of Care End Date 05/20/21 Therapeutic Interventions Therapeutic Interventions Aquatic Therapy,Balance Training,Gait Training,Home Exercise Program,Joint Mobilizations,Manual Therapy, Neuromuscular Re-education, Patient/Caregiver Education, Self-Care/Home Management,Soft Tissue Mobilization,Taping, Therapeutic Activities, Therapeutic Exercises Modalities Cold Pack/Ice Massage,Electric Stimulation,Hot Packs, Infrared Therapy,Traction- Mechanical,Ultrasound Other Therapeutic Interventions NMES for ankle DF Next Visit Focus/Plan Next Note Type Treatment Note Next Visit Plan STM on R glute, TFL, ant tib HEP for ankle DF, nerve glide glute activation NMES on ant tib if needed
--- NOTE | 2021-04-10 12:17 | PT.OTN ---
Current Diagnoses Arthrodesis status (04/10/21) Physical Therapy Treatment Note PT-OP-A Visit Information Start: 03/06/21 10:42 Freq: Status: Active Protocol: Document 04/10/21 09:50 HH (Rec: 04/10/21 12:16 [id number]) Out-Patient Physical Therapy Visit Information Visit Information Visit Type Treatment Note Visit Note pt is going to see surgeon Visit Start Time 09:48 Visit Stop Time 10:41 Total Visit Minutes 53 Visit Number 05/30 Number of PECAN SHELLER Visits 0 PT-OP-B Current Condition Start: 03/06/21 10:42 Freq: Status: Active Protocol: Document 03/06/21 10:43 HH (Rec: 03/06/21 11:11 HH [email or web address]) Current Condition History of Current Condition Onset Date 01/06/21 Current Complaints s/p lumbar L4-L5 fusion, LBP, R leg pain, R foot slap History of Current Condition Emma is a 70 yo female here here for her rehab s/p 8 weeks Lumbar L4-L5 fusion. Pt has been having a new onset of radiating R leg pain (lateral knee to medial heel and big toe). She stated she only had mild radiating leg pain bilaterally, along with slight R foot weakness prior to surgery. Pt is having difficulty walking at this point with significant pain at R buttock during WB on RLE and new onset of R foot slap. Sitting and laying seem not to bother her. Pt has been taking Gabapentin at night and muscle relaxant for pain management. She also noticed her balance and overall LE strength have been decreasing. Pt did report to her surgeon Dr. Nesbitt and he stated that it is going to take at least 6 months for recovery. Prior Functional Status Baseline Function- Other pt was able to walk 3-5 miles /day and play pickle ball couple times a week Current Functional Impairments (Reported) Functional Limitations- Mobility/Gait pt is only able to walk up to 1-2 miles a day because of pain. PT-OP-C Subjective Start: 03/06/21 10:42 Freq: Status: Active Protocol: Document 04/10/21 09:50 HH (Rec: 04/10/21 12:16 [id number]) OP-PT Subjective Patient Comments Patient Comments My x-ray shows the hardware is intact. and im cleared for all activities now. Im not having burning sensation at the ankle now. Patient Reported Progress Improving PT-OP-D Balance Start: 03/06/21 10:42 Freq: Status: Active Protocol: Document 03/06/21 10:43 HH (Rec: 03/06/21 11:11 [email or web address]) Balance Tests Single Limb Standing Single Limb- Right <3s Single Limb- Left >25s PT-OP-F Manual Assessment Start: 03/06/21 10:42 Freq: Status: Active Protocol: Document 03/06/21 10:43 HH (Rec: 03/06/21 11:11 [email or web address]) Manual Assessments Soft Tissue Assessment Soft Tissue Mobility Assessment significant hypertonicity at R anterior tib and R TFL, and gluteal muscle group PT-OP-G Mobility & Gait Start: 03/06/21 10:42 Freq: Status: Active Protocol: Document 03/06/21 10:43 HH (Rec: 03/06/21 11:11 [email or web address]) OP Gait Assessment Gait Deviations General Gait Pattern Antalgic,Decreased Stride Length,Decreased Feet Clearance Factors Limiting Gait Function Factors Limiting Gait Function Decreased Activity Tolerance, Decreased Sensation,Decreased Strength,Limited Range of Motion,Pain,Poor Balance Comments Gait Comments significant antalgic sign on R LE during stance phase, R foot slap during heel strike. PT-OP-H Neuro Start: 03/06/21 10:42 Freq: Status: Active Protocol: Document 03/06/21 10:43 HH (Rec: 03/06/21 11:11 [email or web address]) Sensation Evaluation Gross Sensation Gross Sensation Right LE Impaired Sensation Description Numbness Dermatome Impairments L5 Deep Tendon Reflex & Clonus Assessment Deep Tendon Reflex Left Patellar Deep Tendon Reflex 2+ Normal Bilateral Achilles Deep Tendon Reflex 2+ Normal Right Patellar Deep Tendon Reflex 0 Absent PT-OP-K Range of Motion Start: 03/06/21 10:42 Freq: Status: Active Protocol: Document 03/06/21 10:43 HH (Rec: 03/06/21 11:11 [email or web address]) Ankle and Foot Goniometric Range of Motion Ankle and Foot Right Passive Ankle/Foot ROM WFL No Testing Position Supine Dorsiflexion with Knee Flexed 10 Dorsiflexion with Knee Extended 8 Right Active Ankle/Foot ROM WFL No Testing Position Supine Dorsiflexion with Knee Extended 0 Comments active DF = -5 Left Active Ankle/Foot ROM WFL Yes Testing Position Supine Dorsiflexion with Knee Flexed 7 Dorsiflexion with Knee Extended 5 PT-OP-L Special Tests Start: 03/06/21 10:42 Freq: Status: Active Protocol: Document 03/06/21 10:43 HH (Rec: 03/06/21 11:11 [email or web address]) Special Tests Lumbar Spine Special Tests Straight Leg Raise Test Results +VE R Comments ASLR up to 80, L = 95 Slump Test Results +VE R Comments radiating pain to buttock PT-OP-M Strength Start: 03/06/21 10:42 Freq: Status: Active Protocol: Document 03/06/21 10:43 HH (Rec: 03/06/21 11:11 [email or web address]) Hip Strength Hip Manual Muscle Testing Right Flexion (L2) 3+ Fair+ Extension (S1) 4- Good- Abduction 3+ Fair+ Adduction 4- Good- Left Flexion (L2) 5 Normal Extension (S1) 5 Normal Abduction 5 Normal Adduction 5 Normal Knee Strength Knee Manual Muscle Testing Right Flexion (S2) 4+ Good+ Extension (L3) 4+ Good+ Left Flexion (S2) 5 Normal Extension (L3) 5 Normal Ankle/Foot Strength Ankle and Foot Manual Muscle Testing Right Dorsiflexion (L4) 3+ Fair+ Plantarflexion (S1) 4+ Good+ Inversion 4+ Good+ Eversion (S1) 4+ Good+ Left Dorsiflexion (L4) 5 Normal Plantarflexion (S1) 5 Normal Inversion 5 Normal Eversion (S1) 5 Normal Toe Strength Toe Manual Muscle Testing Right Flexion 4- Good- Extension 4+ Good+ Left Great Toe Flexion 4+ Good+ Extension 4+ Good+ PT-OP-Q Treatments Start: 03/06/21 10:42 Freq: Status: Active Protocol: Document 04/10/21 09:50 HH (Rec: 04/10/21 12:16 HH [id number]) Cardio Equipment Bicycle (Upright) Duration (Minutes) 5 Resistance 5 Other no discomfort Gym Equipment Shuttle Recovery SL squat Resistance #50 Shuttle Recovery Platform Stable Reps/Time 12x2, reports LLE is 40 % weaker Therapeutic Exercises Sidelying Exercises hip abd Side bilateral Reps/Minutes 8x2 Comments for HEP Standing Exercises crab walk Resistance red band on knees Reps/Minutes 20ft x 4 Comments for HEP squat Standing Exercise Name 4 stool underneath L foot. Equipment Used level 2 band on knees Reps/Minutes 10 x2 Comments for HEP Manual Therapy Treatment Soft Tissue Mobilization ant tib Body Location & peroneal Mobilization Type Myofascial Release,Sustained Pressure,Trigger Point Release Intensity/Depth Moderate Body Position Supine Comments reduced tonicity noted. Manual Traction R hip Body Position Supine Reps/Duration 10 sec hold x10 Comments pt reports decompression sensation PT-OP-R Modalities Start: 03/06/21 10:42 Freq: Status: Active Protocol: Document 04/10/21 09:50 HH (Rec: 04/10/21 12:16 [id number]) Electric Stimulation Electric Stimulation Niuean Stimulation Body Location R ant tib. Duration (Minutes) 10 Intensity 80 Cycle 10/10 Patient Position Sitting Comments with active DF during on pt shows improved induced activation of ant tib by e- stim. PT-OP-T Assessment and Plan Start: 03/06/21 10:42 Freq: Status: Active Protocol: Document 04/10/21 09:50 HH (Rec: 04/10/21 12:16 [id number]) Physical Therapy Assessment Goals gait mechanics Impairment antalgic sign with R foot slap Short Term Goal (STG) pt will strengthen her R ankle DF and big toe extension to improve her foot slap pattern during heel strike STG Duration 5 weeks Retirement Goal (LTG) 04/02 pt will show improved R LE strength and stability to reduce her R antalgic sign during gait LTG Duration 10 weeks nerve tension Impairment +Ve for slump test and ASLR Short Term Goal (STG) pt will show improve pain and neural sensitivity without radiating pain to buttock for both slump and ASLR tests STG Duration 8 weeks Retirement Goal (LTG) 04/02/21 no discomfort noted. Owestry Impairment pt scores 40 on Owestry Short Term Goal (STG) pt will be able to show improved mobility and strength by scoring 30 or less on Owestry STG Duration 5 weeks Field Marketing Director Goal (LTG) 04/03 pt scores 28 on Owestry. Pt will be able to show improved mobility and strength by scoring 20 or less on Owestry LTG Duration 10 weeks Assessment Summary Assessment Pt's surgeon gave her full clearance for all activities. Recommended her to continue therapy to improve overall strength and gait mechanics. Pt deb session well with hip stability and gait training. Physical Therapy Plan Frequency and Duration Frequency of Treatment 2x/Week Duration of Treatment 10 weeks Plan of Care Start Date 03/06/21 Plan of Care End Date 05/20/21 Therapeutic Interventions Therapeutic Interventions Aquatic Therapy,Balance Training,Gait Training,Home Exercise Program,Joint Mobilizations,Manual Therapy, Neuromuscular Re-education, Patient/Caregiver Education, Self-Care/Home Management,Soft Tissue Mobilization,Taping, Therapeutic Activities, Therapeutic Exercises Modalities Cold Pack/Ice Massage,Electric Stimulation,Hot Packs, Infrared Therapy,Traction- Mechanical,Ultrasound Other Therapeutic Interventions NMES for ankle DF Next Visit Focus/Plan Next Note Type Treatment Note Next Visit Plan STM on R glute, TFL, ant tib HEP for ankle DF, nerve glide glute activation NMES on ant tib if needed
--- NOTE | 2021-04-14 10:37 | PT.OTN ---
Current Diagnoses Arthrodesis status (04/14/21) Physical Therapy Treatment Note PT-OP-A Visit Information Start: 03/06/21 10:42 Freq: Status: Active Protocol: Document 04/14/21 09:47 HH (Rec: 04/14/21 10:36 [id number]) Out-Patient Physical Therapy Visit Information Visit Information Visit Type Treatment Note Visit Start Time 09:46 Visit Stop Time 10:40 Total Visit Minutes 54 Visit Number 06/29 Number of HOSTEL MANAGER Visits 0 PT-OP-B Current Condition Start: 03/06/21 10:42 Freq: Status: Active Protocol: Document 03/06/21 10:43 HH (Rec: 03/06/21 11:11 HH [email or web address]) Current Condition History of Current Condition Onset Date 01/06/21 Current Complaints s/p lumbar L4-L5 fusion, LBP, R leg pain, R foot slap History of Current Condition Emma is a 70 yo female here here for her rehab s/p 8 weeks Lumbar L4-L5 fusion. Pt has been having a new onset of radiating R leg pain (lateral knee to medial heel and big toe). She stated she only had mild radiating leg pain bilaterally, along with slight R foot weakness prior to surgery. Pt is having difficulty walking at this point with significant pain at R buttock during WB on RLE and new onset of R foot slap. Sitting and laying seem not to bother her. Pt has been taking Gabapentin at night and muscle relaxant for pain management. She also noticed her balance and overall LE strength have been decreasing. Pt did report to her surgeon Dr. Nesbitt and he stated that it is going to take at least 6 months for recovery. Prior Functional Status Baseline Function- Other pt was able to walk 3-5 miles /day and play pickle ball couple times a week Current Functional Impairments (Reported) Functional Limitations- Mobility/Gait pt is only able to walk up to 1-2 miles a day because of pain. PT-OP-C Subjective Start: 03/06/21 10:42 Freq: Status: Active Protocol: Document 04/14/21 09:47 HH (Rec: 04/14/21 10:36 HH [id number]) OP-PT Subjective Patient Comments Patient Comments I tried my foot orthotics yesterday and walked 4 miles in total and my feel felt a lot better without much soreness.. Patient Reported Progress Improving PT-OP-D Balance Start: 03/06/21 10:42 Freq: Status: Active Protocol: Document 03/06/21 10:43 HH (Rec: 03/06/21 11:11 [email or web address]) Balance Tests Single Limb Standing Single Limb- Right <3s Single Limb- Left >25s PT-OP-F Manual Assessment Start: 03/06/21 10:42 Freq: Status: Active Protocol: Document 03/06/21 10:43 HH (Rec: 03/06/21 11:11 [email or web address]) Manual Assessments Soft Tissue Assessment Soft Tissue Mobility Assessment significant hypertonicity at R anterior tib and R TFL, and gluteal muscle group PT-OP-G Mobility & Gait Start: 03/06/21 10:42 Freq: Status: Active Protocol: Document 03/06/21 10:43 HH (Rec: 03/06/21 11:11 [email or web address]) OP Gait Assessment Gait Deviations General Gait Pattern Antalgic,Decreased Stride Length,Decreased Feet Clearance Factors Limiting Gait Function Factors Limiting Gait Function Decreased Activity Tolerance, Decreased Sensation,Decreased Strength,Limited Range of Motion,Pain,Poor Balance Comments Gait Comments significant antalgic sign on R LE during stance phase, R foot slap during heel strike. PT-OP-H Neuro Start: 03/06/21 10:42 Freq: Status: Active Protocol: Document 03/06/21 10:43 HH (Rec: 03/06/21 11:11 [email or web address]) Sensation Evaluation Gross Sensation Gross Sensation Right LE Impaired Sensation Description Numbness Dermatome Impairments L5 Deep Tendon Reflex & Clonus Assessment Deep Tendon Reflex Left Patellar Deep Tendon Reflex 2+ Normal Bilateral Achilles Deep Tendon Reflex 2+ Normal Right Patellar Deep Tendon Reflex 0 Absent PT-OP-K Range of Motion Start: 03/06/21 10:42 Freq: Status: Active Protocol: Document 03/06/21 10:43 HH (Rec: 03/06/21 11:11 [email or web address]) Ankle and Foot Goniometric Range of Motion Ankle and Foot Right Passive Ankle/Foot ROM WFL No Testing Position Supine Dorsiflexion with Knee Flexed 10 Dorsiflexion with Knee Extended 8 Right Active Ankle/Foot ROM WFL No Testing Position Supine Dorsiflexion with Knee Extended 0 Comments active DF = -5 Left Active Ankle/Foot ROM WFL Yes Testing Position Supine Dorsiflexion with Knee Flexed 7 Dorsiflexion with Knee Extended 5 PT-OP-L Special Tests Start: 03/06/21 10:42 Freq: Status: Active Protocol: Document 03/06/21 10:43 HH (Rec: 03/06/21 11:11 [email or web address]) Special Tests Lumbar Spine Special Tests Straight Leg Raise Test Results +VE R Comments ASLR up to 80, L = 95 Slump Test Results +VE R Comments radiating pain to buttock PT-OP-M Strength Start: 03/06/21 10:42 Freq: Status: Active Protocol: Document 03/06/21 10:43 HH (Rec: 03/06/21 11:11 [email or web address]) Hip Strength Hip Manual Muscle Testing Right Flexion (L2) 3+ Fair+ Extension (S1) 4- Good- Abduction 3+ Fair+ Adduction 4- Good- Left Flexion (L2) 5 Normal Extension (S1) 5 Normal Abduction 5 Normal Adduction 5 Normal Knee Strength Knee Manual Muscle Testing Right Flexion (S2) 4+ Good+ Extension (L3) 4+ Good+ Left Flexion (S2) 5 Normal Extension (L3) 5 Normal Ankle/Foot Strength Ankle and Foot Manual Muscle Testing Right Dorsiflexion (L4) 3+ Fair+ Plantarflexion (S1) 4+ Good+ Inversion 4+ Good+ Eversion (S1) 4+ Good+ Left Dorsiflexion (L4) 5 Normal Plantarflexion (S1) 5 Normal Inversion 5 Normal Eversion (S1) 5 Normal Toe Strength Toe Manual Muscle Testing Right Flexion 4- Good- Extension 4+ Good+ Left Great Toe Flexion 4+ Good+ Extension 4+ Good+ PT-OP-Q Treatments Start: 03/06/21 10:42 Freq: Status: Active Protocol: Document 04/14/21 09:47 HH (Rec: 04/14/21 10:36 [id number]) Therapeutic Exercises Supine Exercises leg curl Resistance red therapy ball Reps/Minutes 10x2 SLR Reps/Minutes 10 x2 Comments no discomfort. LTR Resistance red therapy ball Reps/Minutes 10x2 Sidelying Exercises hip abd Side bilateral Reps/Minutes 8x2 Comments for HEP Standing Exercises step up Standing Exercise Name 4 for RLE Reps/Minutes 10x2 squat Standing Exercise Name 4 stool underneath L foot. Equipment Used level 2 band on knees Reps/Minutes 10 x2 Comments for HEP Gait Training Gait Activity heel toe Description almost full heel toe Device Used center of the clinic Level of Assistance SBA Surface ground level Distance/Duration 20ft x 6 Manual Therapy Treatment Manual Traction R hip Body Position Supine Reps/Duration 10 sec hold x10 Comments pt reports decompression sensation PT-OP-R Modalities Start: 03/06/21 10:42 Freq: Status: Active Protocol: Document 04/14/21 09:47 HH (Rec: 04/14/21 10:36 [id number]) Electric Stimulation Electric Stimulation [place] Stimulation Body Location R ant tib. Duration (Minutes) 10 Intensity 80 Cycle 10/10 Patient Position Sitting Comments with active DF during on pt shows improved induced activation of ant tib by e- stim. PT-OP-T Assessment and Plan Start: 03/06/21 10:42 Freq: Status: Active Protocol: Document 04/14/21 09:47 HH (Rec: 04/14/21 10:36 [id number]) Physical Therapy Assessment Goals gait mechanics Impairment antalgic sign with R foot slap Short Term Goal (STG) pt will strengthen her R ankle DF and big toe extension to improve her foot slap pattern during heel strike STG Duration 5 weeks Custodial Goal (LTG) 04/02 pt will show improved R LE strength and stability to reduce her R antalgic sign during gait LTG Duration 10 weeks nerve tension Impairment +Ve for slump test and ASLR Short Term Goal (STG) pt will show improve pain and neural sensitivity without radiating pain to buttock for both slump and ASLR tests STG Duration 8 weeks Custodial Goal (LTG) 04/02/21 no discomfort noted. Owestry Impairment pt scores 40 on Owestry Short Term Goal (STG) pt will be able to show improved mobility and strength by scoring 30 or less on Owestry STG Duration 5 weeks Assurance Assistant Goal (LTG) 04/03 pt scores 28 on Owestry. Pt will be able to show improved mobility and strength by scoring 20 or less on Owestry LTG Duration 10 weeks Assessment Summary Assessment pt has improved hip strength and stability. She still lack of hip neuromotor control in WB position who tends to buckle with single leg stance . Physical Therapy Plan Frequency and Duration Frequency of Treatment 2x/Week Duration of Treatment 10 weeks Plan of Care Start Date 03/06/21 Plan of Care End Date 05/20/21 Therapeutic Interventions Therapeutic Interventions Aquatic Therapy,Balance Training,Gait Training,Home Exercise Program,Joint Mobilizations,Manual Therapy, Neuromuscular Re-education, Patient/Caregiver Education, Self-Care/Home Management,Soft Tissue Mobilization,Taping, Therapeutic Activities, Therapeutic Exercises Modalities Cold Pack/Ice Massage,Electric Stimulation,Hot Packs, Infrared Therapy,Traction- Mechanical,Ultrasound Other Therapeutic Interventions NMES for ankle DF Next Visit Focus/Plan Next Note Type Treatment Note Next Visit Plan STM on R glute, TFL, ant tib HEP for ankle DF, nerve glide glute activation NMES on ant tib if needed
--- NOTE | 2021-04-17 10:33 | PT.OTN ---
Current Diagnoses Arthrodesis status (04/17/21) Physical Therapy Treatment Note PT-OP-A Visit Information Start: 03/06/21 10:42 Freq: Status: Active Protocol: Document 04/17/21 09:39 HH (Rec: 04/17/21 10:32 [id number]) Out-Patient Physical Therapy Visit Information Visit Information Visit Type Treatment Note Visit Start Time 09:45 Visit Stop Time 10:40 Total Visit Minutes 55 Visit Number Number of RESOURCE CONSERVATION SPECIALIST Visits 0 PT-OP-B Current Condition Start: 03/06/21 10:42 Freq: Status: Active Protocol: Document 03/06/21 10:43 HH (Rec: 03/06/21 11:11 HH [email or web address]) Current Condition History of Current Condition Onset Date 01/06/21 Current Complaints s/p lumbar L4-L5 fusion, LBP, R leg pain, R foot slap History of Current Condition Emma is a 70 yo female here here for her rehab s/p 8 weeks Lumbar L4-L5 fusion. Pt has been having a new onset of radiating R leg pain (lateral knee to medial heel and big toe). She stated she only had mild radiating leg pain bilaterally, along with slight R foot weakness prior to surgery. Pt is having difficulty walking at this point with significant pain at R buttock during WB on RLE and new onset of R foot slap. Sitting and laying seem not to bother her. Pt has been taking Gabapentin at night and muscle relaxant for pain management. She also noticed her balance and overall LE strength have been decreasing. Pt did report to her surgeon Dr. Nesbitt and he stated that it is going to take at least 6 months for recovery. Prior Functional Status Baseline Function- Other pt was able to walk 3-5 miles /day and play pickle ball couple times a week Current Functional Impairments (Reported) Functional Limitations- Mobility/Gait pt is only able to walk up to 1-2 miles a day because of pain. PT-OP-C Subjective Start: 03/06/21 10:42 Freq: Status: Active Protocol: Document 04/17/21 09:39 HH (Rec: 04/17/21 10:32 [id number]) OP-PT Subjective Patient Comments Patient Comments I think im walking better at this point. More upright and longer step. I walked 5 miles in total yesteday and i felt pretty good. PT-OP-D Balance Start: 03/06/21 10:42 Freq: Status: Active Protocol: Document 03/06/21 10:43 HH (Rec: 03/06/21 11:11 [email or web address]) Balance Tests Single Limb Standing Single Limb- Right <3s Single Limb- Left >25s PT-OP-F Manual Assessment Start: 03/06/21 10:42 Freq: Status: Active Protocol: Document 03/06/21 10:43 HH (Rec: 03/06/21 11:11 [email or web address]) Manual Assessments Soft Tissue Assessment Soft Tissue Mobility Assessment significant hypertonicity at R anterior tib and R TFL, and gluteal muscle group PT-OP-G Mobility & Gait Start: 03/06/21 10:42 Freq: Status: Active Protocol: Document 03/06/21 10:43 HH (Rec: 03/06/21 11:11 [email or web address]) OP Gait Assessment Gait Deviations General Gait Pattern Antalgic,Decreased Stride Length,Decreased Feet Clearance Factors Limiting Gait Function Factors Limiting Gait Function Decreased Activity Tolerance, Decreased Sensation,Decreased Strength,Limited Range of Motion,Pain,Poor Balance Comments Gait Comments significant antalgic sign on R LE during stance phase, R foot slap during heel strike. PT-OP-H Neuro Start: 03/06/21 10:42 Freq: Status: Active Protocol: Document 03/06/21 10:43 HH (Rec: 03/06/21 11:11 [email or web address]) Sensation Evaluation Gross Sensation Gross Sensation Right LE Impaired Sensation Description Numbness Dermatome Impairments L5 Deep Tendon Reflex & Clonus Assessment Deep Tendon Reflex Left Patellar Deep Tendon Reflex 2+ Normal Bilateral Achilles Deep Tendon Reflex 2+ Normal Right Patellar Deep Tendon Reflex 0 Absent PT-OP-K Range of Motion Start: 03/06/21 10:42 Freq: Status: Active Protocol: Document 03/06/21 10:43 HH (Rec: 03/06/21 11:11 [email or web address]) Ankle and Foot Goniometric Range of Motion Ankle and Foot Right Passive Ankle/Foot ROM WFL No Testing Position Supine Dorsiflexion with Knee Flexed 10 Dorsiflexion with Knee Extended 8 Right Active Ankle/Foot ROM WFL No Testing Position Supine Dorsiflexion with Knee Extended 0 Comments active DF = -5 Left Active Ankle/Foot ROM WFL Yes Testing Position Supine Dorsiflexion with Knee Flexed 7 Dorsiflexion with Knee Extended 5 PT-OP-L Special Tests Start: 03/06/21 10:42 Freq: Status: Active Protocol: Document 03/06/21 10:43 HH (Rec: 03/06/21 11:11 [email or web address]) Special Tests Lumbar Spine Special Tests Straight Leg Raise Test Results +VE R Comments ASLR up to 80, L = 95 Slump Test Results +VE R Comments radiating pain to buttock PT-OP-M Strength Start: 03/06/21 10:42 Freq: Status: Active Protocol: Document 03/06/21 10:43 (Rec: 03/06/21 11:11 [email or web address]) Hip Strength Hip Manual Muscle Testing Right Flexion (L2) 3+ Fair+ Extension (S1) 4- Good- Abduction 3+ Fair+ Adduction 4- Good- Left Flexion (L2) 5 Normal Extension (S1) 5 Normal Abduction 5 Normal Adduction 5 Normal Knee Strength Knee Manual Muscle Testing Right Flexion (S2) 4+ Good+ Extension (L3) 4+ Good+ Left Flexion (S2) 5 Normal Extension (L3) 5 Normal Ankle/Foot Strength Ankle and Foot Manual Muscle Testing Right Dorsiflexion (L4) 3+ Fair+ Plantarflexion (S1) 4+ Good+ Inversion 4+ Good+ Eversion (S1) 4+ Good+ Left Dorsiflexion (L4) 5 Normal Plantarflexion (S1) 5 Normal Inversion 5 Normal Eversion (S1) 5 Normal Toe Strength Toe Manual Muscle Testing Right Flexion 4- Good- Extension 4+ Good+ Left Great Toe Flexion 4+ Good+ Extension 4+ Good+ PT-OP-Q Treatments Start: 03/06/21 10:42 Freq: Status: Active Protocol: Document 04/17/21 09:39 (Rec: 04/17/21 10:32 [id number]) Gym Equipment Shuttle Recovery SL squat Resistance #50 Shuttle Recovery Platform Stable Reps/Time 12x2, reports LLE is 40 % weaker Therapeutic Exercises Standing Exercises standing hip ext/ abd Standing Exercise Name 1 UE on support and 1UE on pelvis Side bilateral Reps/Minutes 10 x2 Comments for HEP, cues on leveled hip. calf raises Standing Exercise Name ball between heels, cues for ankle inv Reps/Minutes 15x2 Comments for HEP Manual Therapy Treatment Manual Traction R hip Body Position Supine Reps/Duration 10 sec hold x10 Comments pt reports decompression sensation PT-OP-R Modalities Start: 03/06/21 10:42 Freq: Status: Active Protocol: Document 04/17/21 09:39 (Rec: 04/17/21 10:32 [id number]) Electric Stimulation Electric Stimulation [place] Stimulation Body Location R ant tib. Duration (Minutes) 10 Intensity 80 Cycle 10/10 Patient Position Sitting Comments with active DF during on pt shows improved induced activation of ant tib by e- stim. PT-OP-T Assessment and Plan Start: 03/06/21 10:42 Freq: Status: Active Protocol: Document 04/17/21 09:39 (Rec: 04/17/21 10:32 [id number]) Physical Therapy Assessment Goals gait mechanics Impairment antalgic sign with R foot slap Short Term Goal (STG) pt will strengthen her R ankle DF and big toe extension to improve her foot slap pattern during heel strike STG Duration 5 weeks Residential Goal (LTG) 04/02 pt will show improved R LE strength and stability to reduce her R antalgic sign during gait LTG Duration 10 weeks nerve tension Impairment +Ve for slump test and ASLR Short Term Goal (STG) pt will show improve pain and neural sensitivity without radiating pain to buttock for both slump and ASLR tests STG Duration 8 weeks Residential Goal (LTG) 04/02/21 no discomfort noted. Owestry Impairment pt scores 40 on Owestry Short Term Goal (STG) pt will be able to show improved mobility and strength by scoring 30 or less on Owestry STG Duration 5 weeks Sizer Machine Goal (LTG) 04/03 pt scores 28 on Owestry. Pt will be able to show improved mobility and strength by scoring 20 or less on Owestry LTG Duration 10 weeks Assessment Summary Assessment pt reports increased activity tolerance for walking and standing. However, she does have weakness for ankle inversion and difficulty with SLS on RLE. This session focused on engaging R hip stabilizer and ankle invertors during SLS. Added standing hip ext and abd to HEP. Physical Therapy Plan Frequency and Duration Frequency of Treatment 2x/Week Duration of Treatment 10 weeks Plan of Care Start Date 03/06/21 Plan of Care End Date 05/20/21 Therapeutic Interventions Therapeutic Interventions Aquatic Therapy,Balance Training,Gait Training,Home Exercise Program,Joint Mobilizations,Manual Therapy, Neuromuscular Re-education, Patient/Caregiver Education, Self-Care/Home Management,Soft Tissue Mobilization,Taping, Therapeutic Activities, Therapeutic Exercises Modalities Cold Pack/Ice Massage,Electric Stimulation,Hot Packs, Infrared Therapy,Traction- Mechanical,Ultrasound Other Therapeutic Interventions NMES for ankle DF Next Visit Focus/Plan Next Note Type Treatment Note Next Visit Plan STM on R glute, TFL, ant tib HEP for ankle DF, nerve glide glute activation NMES on ant tib if needed
--- NOTE | 2021-04-21 12:16 | PT.OTN ---
Current Diagnoses Arthrodesis status (04/21/21) Physical Therapy Treatment Note PT-OP-A Visit Information Start: 03/06/21 10:42 Freq: Status: Active Protocol: Document 04/17/21 09:39 HH (Rec: 04/17/21 10:32 [id number]) Out-Patient Physical Therapy Visit Information Visit Information Visit Type Treatment Note Visit Start Time 09:45 Visit Stop Time 10:40 Total Visit Minutes 55 Visit Number Number of LEAD BLENDER Visits 0 PT-OP-B Current Condition Start: 03/06/21 10:42 Freq: Status: Active Protocol: Document 03/06/21 10:43 HH (Rec: 03/06/21 11:11 HH [email or web address]) Current Condition History of Current Condition Onset Date 01/06/21 Current Complaints s/p lumbar L4-L5 fusion, LBP, R leg pain, R foot slap History of Current Condition Emma is a 70 yo female here here for her rehab s/p 8 weeks Lumbar L4-L5 fusion. Pt has been having a new onset of radiating R leg pain (lateral knee to medial heel and big toe). She stated she only had mild radiating leg pain bilaterally, along with slight R foot weakness prior to surgery. Pt is having difficulty walking at this point with significant pain at R buttock during WB on RLE and new onset of R foot slap. Sitting and laying seem not to bother her. Pt has been taking Gabapentin at night and muscle relaxant for pain management. She also noticed her balance and overall LE strength have been decreasing. Pt did report to her surgeon Dr. Nesbitt and he stated that it is going to take at least 6 months for recovery. Prior Functional Status Baseline Function- Other pt was able to walk 3-5 miles /day and play pickle ball couple times a week Current Functional Impairments (Reported) Functional Limitations- Mobility/Gait pt is only able to walk up to 1-2 miles a day because of pain. PT-OP-C Subjective Start: 03/06/21 10:42 Freq: Status: Active Protocol: Document 04/17/21 09:39 HH (Rec: 04/17/21 10:32 [id number]) OP-PT Subjective Patient Comments Patient Comments I think im walking better at this point. More upright and longer step. I walked 5 miles in total yesteday and i felt pretty good. PT-OP-D Balance Start: 03/06/21 10:42 Freq: Status: Active Protocol: Document 03/06/21 10:43 HH (Rec: 03/06/21 11:11 [email or web address]) Balance Tests Single Limb Standing Single Limb- Right <3s Single Limb- Left >25s PT-OP-F Manual Assessment Start: 03/06/21 10:42 Freq: Status: Active Protocol: Document 03/06/21 10:43 HH (Rec: 03/06/21 11:11 [email or web address]) Manual Assessments Soft Tissue Assessment Soft Tissue Mobility Assessment significant hypertonicity at R anterior tib and R TFL, and gluteal muscle group PT-OP-G Mobility & Gait Start: 03/06/21 10:42 Freq: Status: Active Protocol: Document 03/06/21 10:43 HH (Rec: 03/06/21 11:11 [email or web address]) OP Gait Assessment Gait Deviations General Gait Pattern Antalgic,Decreased Stride Length,Decreased Feet Clearance Factors Limiting Gait Function Factors Limiting Gait Function Decreased Activity Tolerance, Decreased Sensation,Decreased Strength,Limited Range of Motion,Pain,Poor Balance Comments Gait Comments significant antalgic sign on R LE during stance phase, R foot slap during heel strike. PT-OP-H Neuro Start: 03/06/21 10:42 Freq: Status: Active Protocol: Document 03/06/21 10:43 HH (Rec: 03/06/21 11:11 [email or web address]) Sensation Evaluation Gross Sensation Gross Sensation Right LE Impaired Sensation Description Numbness Dermatome Impairments L5 Deep Tendon Reflex & Clonus Assessment Deep Tendon Reflex Left Patellar Deep Tendon Reflex 2+ Normal Bilateral Achilles Deep Tendon Reflex 2+ Normal Right Patellar Deep Tendon Reflex 0 Absent PT-OP-K Range of Motion Start: 03/06/21 10:42 Freq: Status: Active Protocol: Document 03/06/21 10:43 HH (Rec: 03/06/21 11:11 [email or web address]) Ankle and Foot Goniometric Range of Motion Ankle and Foot Right Passive Ankle/Foot ROM WFL No Testing Position Supine Dorsiflexion with Knee Flexed 10 Dorsiflexion with Knee Extended 8 Right Active Ankle/Foot ROM WFL No Testing Position Supine Dorsiflexion with Knee Extended 0 Comments active DF = -5 Left Active Ankle/Foot ROM WFL Yes Testing Position Supine Dorsiflexion with Knee Flexed 7 Dorsiflexion with Knee Extended 5 PT-OP-L Special Tests Start: 03/06/21 10:42 Freq: Status: Active Protocol: Document 03/06/21 10:43 HH (Rec: 03/06/21 11:11 [email or web address]) Special Tests Lumbar Spine Special Tests Straight Leg Raise Test Results +VE R Comments ASLR up to 80, L = 95 Slump Test Results +VE R Comments radiating pain to buttock PT-OP-M Strength Start: 03/06/21 10:42 Freq: Status: Active Protocol: Document 03/06/21 10:43 (Rec: 03/06/21 11:11 [email or web address]) Hip Strength Hip Manual Muscle Testing Right Flexion (L2) 3+ Fair+ Extension (S1) 4- Good- Abduction 3+ Fair+ Adduction 4- Good- Left Flexion (L2) 5 Normal Extension (S1) 5 Normal Abduction 5 Normal Adduction 5 Normal Knee Strength Knee Manual Muscle Testing Right Flexion (S2) 4+ Good+ Extension (L3) 4+ Good+ Left Flexion (S2) 5 Normal Extension (L3) 5 Normal Ankle/Foot Strength Ankle and Foot Manual Muscle Testing Right Dorsiflexion (L4) 3+ Fair+ Plantarflexion (S1) 4+ Good+ Inversion 4+ Good+ Eversion (S1) 4+ Good+ Left Dorsiflexion (L4) 5 Normal Plantarflexion (S1) 5 Normal Inversion 5 Normal Eversion (S1) 5 Normal Toe Strength Toe Manual Muscle Testing Right Flexion 4- Good- Extension 4+ Good+ Left Great Toe Flexion 4+ Good+ Extension 4+ Good+ PT-OP-Q Treatments Start: 03/06/21 10:42 Freq: Status: Active Protocol: Document 04/17/21 09:39 (Rec: 04/17/21 10:32 [id number]) Gym Equipment Shuttle Recovery SL squat Resistance #50 Shuttle Recovery Platform Stable Reps/Time 12x2, reports LLE is 40 % weaker Therapeutic Exercises Standing Exercises standing hip ext/ abd Standing Exercise Name 1 UE on support and 1UE on pelvis Side bilateral Reps/Minutes 10 x2 Comments for HEP, cues on leveled hip. calf raises Standing Exercise Name ball between heels, cues for ankle inv Reps/Minutes 15x2 Comments for HEP Manual Therapy Treatment Manual Traction R hip Body Position Supine Reps/Duration 10 sec hold x10 Comments pt reports decompression sensation PT-OP-R Modalities Start: 03/06/21 10:42 Freq: Status: Active Protocol: Document 04/17/21 09:39 (Rec: 04/17/21 10:32 [id number]) Electric Stimulation Electric Stimulation [place] Stimulation Body Location R ant tib. Duration (Minutes) 10 Intensity 80 Cycle 10/10 Patient Position Sitting Comments with active DF during on pt shows improved induced activation of ant tib by e- stim. PT-OP-T Assessment and Plan Start: 03/06/21 10:42 Freq: Status: Active Protocol: Document 04/17/21 09:39 (Rec: 04/17/21 10:32 [id number]) Physical Therapy Assessment Goals gait mechanics Impairment antalgic sign with R foot slap Short Term Goal (STG) pt will strengthen her R ankle DF and big toe extension to improve her foot slap pattern during heel strike STG Duration 5 weeks Shelter Goal (LTG) 04/02 pt will show improved R LE strength and stability to reduce her R antalgic sign during gait LTG Duration 10 weeks nerve tension Impairment +Ve for slump test and ASLR Short Term Goal (STG) pt will show improve pain and neural sensitivity without radiating pain to buttock for both slump and ASLR tests STG Duration 8 weeks Shelter Goal (LTG) 04/02/21 no discomfort noted. Owestry Impairment pt scores 40 on Owestry Short Term Goal (STG) pt will be able to show improved mobility and strength by scoring 30 or less on Owestry STG Duration 5 weeks Health Careers Instructor Goal (LTG) 04/03 pt scores 28 on Owestry. Pt will be able to show improved mobility and strength by scoring 20 or less on Owestry LTG Duration 10 weeks Assessment Summary Assessment pt reports increased activity tolerance for walking and standing. However, she does have weakness for ankle inversion and difficulty with SLS on RLE. This session focused on engaging R hip stabilizer and ankle invertors during SLS. Added standing hip ext and abd to HEP. Physical Therapy Plan Frequency and Duration Frequency of Treatment 2x/Week Duration of Treatment 10 weeks Plan of Care Start Date 03/06/21 Plan of Care End Date 05/20/21 Therapeutic Interventions Therapeutic Interventions Aquatic Therapy,Balance Training,Gait Training,Home Exercise Program,Joint Mobilizations,Manual Therapy, Neuromuscular Re-education, Patient/Caregiver Education, Self-Care/Home Management,Soft Tissue Mobilization,Taping, Therapeutic Activities, Therapeutic Exercises Modalities Cold Pack/Ice Massage,Electric Stimulation,Hot Packs, Infrared Therapy,Traction- Mechanical,Ultrasound Other Therapeutic Interventions NMES for ankle DF Next Visit Focus/Plan Next Note Type Treatment Note Next Visit Plan STM on R glute, TFL, ant tib HEP for ankle DF, nerve glide glute activation NMES on ant tib if needed
--- NOTE | 2021-04-24 11:18 | PT.OTN ---
Current Diagnoses Arthrodesis status (04/24/21) Physical Therapy Treatment Note PT-OP-A Visit Information Start: 03/06/21 10:42 Freq: Status: Active Protocol: Document 04/24/21 09:43 HH (Rec: 04/24/21 11:18 [id number]) Out-Patient Physical Therapy Visit Information Visit Information Visit Type Treatment Note Visit Start Time 09:50 Visit Stop Time 10:30 Total Visit Minutes 40 Visit Number 15/ Number of LICENSED VOCATIONAL NURSE Visits 0 PT-OP-B Current Condition Start: 03/06/21 10:42 Freq: Status: Active Protocol: Document 03/06/21 10:43 HH (Rec: 03/06/21 11:11 HH [email or web address]) Current Condition History of Current Condition Onset Date 01/06/21 Current Complaints s/p lumbar L4-L5 fusion, LBP, R leg pain, R foot slap History of Current Condition Emma is a 70 yo female here here for her rehab s/p 8 weeks Lumbar L4-L5 fusion. Pt has been having a new onset of radiating R leg pain (lateral knee to medial heel and big toe). She stated she only had mild radiating leg pain bilaterally, along with slight R foot weakness prior to surgery. Pt is having difficulty walking at this point with significant pain at R buttock during WB on RLE and new onset of R foot slap. Sitting and laying seem not to bother her. Pt has been taking Gabapentin at night and muscle relaxant for pain management. She also noticed her balance and overall LE strength have been decreasing. Pt did report to her surgeon Dr. Nesbitt and he stated that it is going to take at least 6 months for recovery. Prior Functional Status Baseline Function- Other pt was able to walk 3-5 miles /day and play pickle ball couple times a week Current Functional Impairments (Reported) Functional Limitations- Mobility/Gait pt is only able to walk up to 1-2 miles a day because of pain. PT-OP-C Subjective Start: 03/06/21 10:42 Freq: Status: Active Protocol: Document 04/24/21 09:43 HH (Rec: 04/24/21 11:18 [id number]) OP-PT Subjective Patient Comments Patient Comments I did get sore from last time but im pretty good today Patient Reported Progress Improving PT-OP-D Balance Start: 03/06/21 10:42 Freq: Status: Active Protocol: Document 03/06/21 10:43 HH (Rec: 03/06/21 11:11 [email or web address]) Balance Tests Single Limb Standing Single Limb- Right <3s Single Limb- Left >25s PT-OP-F Manual Assessment Start: 03/06/21 10:42 Freq: Status: Active Protocol: Document 03/06/21 10:43 HH (Rec: 03/06/21 11:11 [email or web address]) Manual Assessments Soft Tissue Assessment Soft Tissue Mobility Assessment significant hypertonicity at R anterior tib and R TFL, and gluteal muscle group PT-OP-G Mobility & Gait Start: 03/06/21 10:42 Freq: Status: Active Protocol: Document 03/06/21 10:43 HH (Rec: 03/06/21 11:11 [email or web address]) OP Gait Assessment Gait Deviations General Gait Pattern Antalgic,Decreased Stride Length,Decreased Feet Clearance Factors Limiting Gait Function Factors Limiting Gait Function Decreased Activity Tolerance, Decreased Sensation,Decreased Strength,Limited Range of Motion,Pain,Poor Balance Comments Gait Comments significant antalgic sign on R LE during stance phase, R foot slap during heel strike. PT-OP-H Neuro Start: 03/06/21 10:42 Freq: Status: Active Protocol: Document 03/06/21 10:43 HH (Rec: 03/06/21 11:11 [email or web address]) Sensation Evaluation Gross Sensation Gross Sensation Right LE Impaired Sensation Description Numbness Dermatome Impairments L5 Deep Tendon Reflex & Clonus Assessment Deep Tendon Reflex Left Patellar Deep Tendon Reflex 2+ Normal Bilateral Achilles Deep Tendon Reflex 2+ Normal Right Patellar Deep Tendon Reflex 0 Absent PT-OP-K Range of Motion Start: 03/06/21 10:42 Freq: Status: Active Protocol: Document 03/06/21 10:43 HH (Rec: 03/06/21 11:11 [email or web address]) Ankle and Foot Goniometric Range of Motion Ankle and Foot Right Passive Ankle/Foot ROM WFL No Testing Position Supine Dorsiflexion with Knee Flexed 10 Dorsiflexion with Knee Extended 8 Right Active Ankle/Foot ROM WFL No Testing Position Supine Dorsiflexion with Knee Extended 0 Comments active DF = -5 Left Active Ankle/Foot ROM WFL Yes Testing Position Supine Dorsiflexion with Knee Flexed 7 Dorsiflexion with Knee Extended 5 PT-OP-L Special Tests Start: 03/06/21 10:42 Freq: Status: Active Protocol: Document 03/06/21 10:43 HH (Rec: 03/06/21 11:11 [email or web address]) Special Tests Lumbar Spine Special Tests Straight Leg Raise Test Results +VE R Comments ASLR up to 80, L = 95 Slump Test Results +VE R Comments radiating pain to buttock PT-OP-M Strength Start: 03/06/21 10:42 Freq: Status: Active Protocol: Document 03/06/21 10:43 HH (Rec: 03/06/21 11:11 [email or web address]) Hip Strength Hip Manual Muscle Testing Right Flexion (L2) 3+ Fair+ Extension (S1) 4- Good- Abduction 3+ Fair+ Adduction 4- Good- Left Flexion (L2) 5 Normal Extension (S1) 5 Normal Abduction 5 Normal Adduction 5 Normal Knee Strength Knee Manual Muscle Testing Right Flexion (S2) 4+ Good+ Extension (L3) 4+ Good+ Left Flexion (S2) 5 Normal Extension (L3) 5 Normal Ankle/Foot Strength Ankle and Foot Manual Muscle Testing Right Dorsiflexion (L4) 3+ Fair+ Plantarflexion (S1) 4+ Good+ Inversion 4+ Good+ Eversion (S1) 4+ Good+ Left Dorsiflexion (L4) 5 Normal Plantarflexion (S1) 5 Normal Inversion 5 Normal Eversion (S1) 5 Normal Toe Strength Toe Manual Muscle Testing Right Flexion 4- Good- Extension 4+ Good+ Left Great Toe Flexion 4+ Good+ Extension 4+ Good+ PT-OP-Q Treatments Start: 03/06/21 10:42 Freq: Status: Active Protocol: Document 04/24/21 09:43 (Rec: 04/24/21 11:18 [id number]) Gym Equipment Shuttle Recovery SL squat Resistance #62 Shuttle Recovery Platform Stable Reps/Time 10x2, Therapeutic Exercises Supine Exercises SLR Reps/Minutes 10 x2 Comments no discomfort, cues on neutral spine Standing Exercises standing hip ext/ abd Standing Exercise Name 1 UE on support and 1UE on pelvis Side bilateral Reps/Minutes 10 x2 Comments for HEP, cues on leveled hip. crab walk Resistance red band on knees Reps/Minutes 20ft x 4 Comments for HEP toe raises Standing Exercise Name back against wall. Reps/Minutes 20x1 calf raises Standing Exercise Name ball between heels, cues for ankle inv Reps/Minutes 15x2 Comments for HEP Gait Training Gait Activity marching Level of Assistance ground level Distance/Duration 20 ft x 6 Comments hands on pelvis for cueing heel toe Description almost full heel toe Device Used center of the clinic Level of Assistance SBA Surface ground level Distance/Duration 20ft x 6 PT-OP-R Modalities Start: 03/06/21 10:42 Freq: Status: Active Protocol: Document 04/17/21 09:39 HH (Rec: 04/17/21 10:32 [id number]) Electric Stimulation Electric Stimulation Spanish Stimulation Body Location R ant tib. Duration (Minutes) 10 Intensity 80 Cycle 10/10 Patient Position Sitting Comments with active DF during on pt shows improved induced activation of ant tib by e- stim. PT-OP-T Assessment and Plan Start: 03/06/21 10:42 Freq: Status: Active Protocol: Document 04/24/21 09:43 HH (Rec: 04/24/21 11:18 [id number]) Physical Therapy Assessment Goals gait mechanics Impairment antalgic sign with R foot slap Short Term Goal (STG) pt will strengthen her R ankle DF and big toe extension to improve her foot slap pattern during heel strike STG Duration 5 weeks Document Control Assistant Goal (LTG) 04/02 pt will show improved R LE strength and stability to reduce her R antalgic sign during gait LTG Duration 10 weeks nerve tension Impairment +Ve for slump test and ASLR Short Term Goal (STG) pt will show improve pain and neural sensitivity without radiating pain to buttock for both slump and ASLR tests STG Duration 8 weeks Residential Goal (LTG) 04/02/21 no discomfort noted. Owestry Impairment pt scores 40 on Owestry Short Term Goal (STG) pt will be able to show improved mobility and strength by scoring 30 or less on Owestry STG Duration 5 weeks Document Control Assistant Goal (LTG) 04/03 pt scores 28 on Owestry. Pt will be able to show improved mobility and strength by scoring 20 or less on Owestry LTG Duration 10 weeks Assessment Summary Assessment pt reports continuous low back stiff so provided knee to chest stretch and SLR to improve her mobility and core stability. Will keep traction in POC . Physical Therapy Plan Frequency and Duration Frequency of Treatment 2x/Week Duration of Treatment 10 weeks Plan of Care Start Date 03/06/21 Plan of Care End Date 05/20/21 Therapeutic Interventions Therapeutic Interventions Aquatic Therapy,Balance Training,Gait Training,Home Exercise Program,Joint Mobilizations,Manual Therapy, Neuromuscular Re-education, Patient/Caregiver Education, Self-Care/Home Management,Soft Tissue Mobilization,Taping, Therapeutic Activities, Therapeutic Exercises Modalities Cold Pack/Ice Massage,Electric Stimulation,Hot Packs, Infrared Therapy,Traction- Mechanical,Ultrasound Other Therapeutic Interventions NMES for ankle DF Next Visit Focus/Plan Next Note Type Treatment Note Next Visit Plan STM on R glute, TFL, ant tib HEP for ankle DF, nerve glide glute activation NMES on ant tib if needed
--- NOTE | 2021-04-29 11:30 | PT.OTN ---
Current Diagnoses Arthrodesis status (04/29/21) Physical Therapy Treatment Note PT-OP-A Visit Information Start: 03/06/21 10:42 Freq: Status: Active Protocol: Document 04/29/21 09:53 HH (Rec: 04/29/21 11:30 [id number]) Out-Patient Physical Therapy Visit Information Visit Information Visit Type Treatment Note Visit Start Time 09:48 Visit Stop Time 10:30 Total Visit Minutes 42 Visit Number Number of GEOTHERMAL SYSTEM INSTALLER Visits 0 PT-OP-B Current Condition Start: 03/06/21 10:42 Freq: Status: Active Protocol: Document 03/06/21 10:43 HH (Rec: 03/06/21 11:11 HH [email or web address]) Current Condition History of Current Condition Onset Date 01/06/21 Current Complaints s/p lumbar L4-L5 fusion, LBP, R leg pain, R foot slap History of Current Condition Emma is a 70 yo female here here for her rehab s/p 8 weeks Lumbar L4-L5 fusion. Pt has been having a new onset of radiating R leg pain (lateral knee to medial heel and big toe). She stated she only had mild radiating leg pain bilaterally, along with slight R foot weakness prior to surgery. Pt is having difficulty walking at this point with significant pain at R buttock during WB on RLE and new onset of R foot slap. Sitting and laying seem not to bother her. Pt has been taking Gabapentin at night and muscle relaxant for pain management. She also noticed her balance and overall LE strength have been decreasing. Pt did report to her surgeon Dr. Nesbitt and he stated that it is going to take at least 6 months for recovery. Prior Functional Status Baseline Function- Other pt was able to walk 3-5 miles /day and play pickle ball couple times a week Current Functional Impairments (Reported) Functional Limitations- Mobility/Gait pt is only able to walk up to 1-2 miles a day because of pain. PT-OP-C Subjective Start: 03/06/21 10:42 Freq: Status: Active Protocol: Document 04/29/21 09:53 HH (Rec: 04/29/21 11:30 HH [id number]) OP-PT Subjective Patient Comments Patient Comments I ve been able to stand on one leg and put my pants up slowly. Im walking better with the concentraction on engaging the butt muscles. Patient Reported Progress Improving PT-OP-D Balance Start: 03/06/21 10:42 Freq: Status: Active Protocol: Document 03/06/21 10:43 HH (Rec: 03/06/21 11:11 [email or web address]) Balance Tests Single Limb Standing Single Limb- Right <3s Single Limb- Left >25s PT-OP-F Manual Assessment Start: 03/06/21 10:42 Freq: Status: Active Protocol: Document 03/06/21 10:43 HH (Rec: 03/06/21 11:11 [email or web address]) Manual Assessments Soft Tissue Assessment Soft Tissue Mobility Assessment significant hypertonicity at R anterior tib and R TFL, and gluteal muscle group PT-OP-G Mobility & Gait Start: 03/06/21 10:42 Freq: Status: Active Protocol: Document 03/06/21 10:43 HH (Rec: 03/06/21 11:11 [email or web address]) OP Gait Assessment Gait Deviations General Gait Pattern Antalgic,Decreased Stride Length,Decreased Feet Clearance Factors Limiting Gait Function Factors Limiting Gait Function Decreased Activity Tolerance, Decreased Sensation,Decreased Strength,Limited Range of Motion,Pain,Poor Balance Comments Gait Comments significant antalgic sign on R LE during stance phase, R foot slap during heel strike. PT-OP-H Neuro Start: 03/06/21 10:42 Freq: Status: Active Protocol: Document 03/06/21 10:43 HH (Rec: 03/06/21 11:11 [email or web address]) Sensation Evaluation Gross Sensation Gross Sensation Right LE Impaired Sensation Description Numbness Dermatome Impairments L5 Deep Tendon Reflex & Clonus Assessment Deep Tendon Reflex Left Patellar Deep Tendon Reflex 2+ Normal Bilateral Achilles Deep Tendon Reflex 2+ Normal Right Patellar Deep Tendon Reflex 0 Absent PT-OP-K Range of Motion Start: 03/06/21 10:42 Freq: Status: Active Protocol: Document 03/06/21 10:43 HH (Rec: 03/06/21 11:11 [email or web address]) Ankle and Foot Goniometric Range of Motion Ankle and Foot Right Passive Ankle/Foot ROM WFL No Testing Position Supine Dorsiflexion with Knee Flexed 10 Dorsiflexion with Knee Extended 8 Right Active Ankle/Foot ROM WFL No Testing Position Supine Dorsiflexion with Knee Extended 0 Comments active DF = -5 Left Active Ankle/Foot ROM WFL Yes Testing Position Supine Dorsiflexion with Knee Flexed 7 Dorsiflexion with Knee Extended 5 PT-OP-L Special Tests Start: 03/06/21 10:42 Freq: Status: Active Protocol: Document 03/06/21 10:43 HH (Rec: 03/06/21 11:11 [email or web address]) Special Tests Lumbar Spine Special Tests Straight Leg Raise Test Results +VE R Comments ASLR up to 80, L = 95 Slump Test Results +VE R Comments radiating pain to buttock PT-OP-M Strength Start: 03/06/21 10:42 Freq: Status: Active Protocol: Document 03/06/21 10:43 (Rec: 03/06/21 11:11 [email or web address]) Hip Strength Hip Manual Muscle Testing Right Flexion (L2) 3+ Fair+ Extension (S1) 4- Good- Abduction 3+ Fair+ Adduction 4- Good- Left Flexion (L2) 5 Normal Extension (S1) 5 Normal Abduction 5 Normal Adduction 5 Normal Knee Strength Knee Manual Muscle Testing Right Flexion (S2) 4+ Good+ Extension (L3) 4+ Good+ Left Flexion (S2) 5 Normal Extension (L3) 5 Normal Ankle/Foot Strength Ankle and Foot Manual Muscle Testing Right Dorsiflexion (L4) 3+ Fair+ Plantarflexion (S1) 4+ Good+ Inversion 4+ Good+ Eversion (S1) 4+ Good+ Left Dorsiflexion (L4) 5 Normal Plantarflexion (S1) 5 Normal Inversion 5 Normal Eversion (S1) 5 Normal Toe Strength Toe Manual Muscle Testing Right Flexion 4- Good- Extension 4+ Good+ Left Great Toe Flexion 4+ Good+ Extension 4+ Good+ PT-OP-Q Treatments Start: 03/06/21 10:42 Freq: Status: Active Protocol: Document 04/29/21 09:53 (Rec: 04/29/21 11:30 [id number]) Gym Equipment Shuttle Recovery SL squat Resistance #62 Shuttle Recovery Platform Stable Reps/Time 10x2, Therapeutic Exercises Supine Exercises knee to chest Comments for HEP Standing Exercises toe tap Equipment Used 8 step Reps/Minutes 20 x 2 step up Standing Exercise Name 4 -6 for RLE Reps/Minutes 10x2 crab walk Resistance red band on knees Reps/Minutes 20ft x 4 Comments for HEP Manual Therapy Treatment Soft Tissue Mobilization QL Body Location bilateral Mobilization Type Myofascial Release Intensity/Depth Moderate Body Position Sidelying Manual Traction R hip Body Position Supine Reps/Duration 10 sec hold x10 Comments pt reports decompression sensation Neuro Re-Education Treatment Balance Activities hurdles Surface ground level Comments fwd, step to then step over pattern. PT-OP-R Modalities Start: 03/06/21 10:42 Freq: Status: Active Protocol: Document 04/17/21 09:39 HH (Rec: 04/17/21 10:32 HH [id number]) Electric Stimulation Electric Stimulation [place] Stimulation Body Location R ant tib. Duration (Minutes) 10 Intensity 80 Cycle 10/10 Patient Position Sitting Comments with active DF during on pt shows improved induced activation of ant tib by e- stim. PT-OP-T Assessment and Plan Start: 03/06/21 10:42 Freq: Status: Active Protocol: Document 04/29/21 09:53 HH (Rec: 04/29/21 11:30 HH [id number]) Physical Therapy Assessment Goals gait mechanics Impairment antalgic sign with R foot slap Short Term Goal (STG) pt will strengthen her R ankle DF and big toe extension to improve her foot slap pattern during heel strike STG Duration 5 weeks Correction Goal (LTG) 04/02 pt will show improved R LE strength and stability to reduce her R antalgic sign during gait LTG Duration 10 weeks nerve tension Impairment +Ve for slump test and ASLR Short Term Goal (STG) pt will show improve pain and neural sensitivity without radiating pain to buttock for both slump and ASLR tests STG Duration 8 weeks Brick Siding Applicator Goal (LTG) 04/02/21 no discomfort noted. Owestry Impairment pt scores 40 on Owestry Short Term Goal (STG) pt will be able to show improved mobility and strength by scoring 30 or less on Owestry STG Duration 5 weeks Correction Goal (LTG) 04/03 pt scores 28 on Owestry. Pt will be able to show improved mobility and strength by scoring 20 or less on Owestry LTG Duration 10 weeks Assessment Summary Assessment pt reports improved SL balance but do have stiffness at back possibly d/t her increased activity level. Consolidated her HEP today and she shows good SL strength and balance. Will reassess her next visit to discuss possible DC. Physical Therapy Plan Frequency and Duration Frequency of Treatment 2x/Week Duration of Treatment 10 weeks Plan of Care Start Date 03/06/21 Plan of Care End Date 05/20/21 Therapeutic Interventions Therapeutic Interventions Aquatic Therapy,Balance Training,Gait Training,Home Exercise Program,Joint Mobilizations,Manual Therapy, Neuromuscular Re-education, Patient/Caregiver Education, Self-Care/Home Management,Soft Tissue Mobilization,Taping, Therapeutic Activities, Therapeutic Exercises Modalities Cold Pack/Ice Massage,Electric Stimulation,Hot Packs, Infrared Therapy,Traction- Mechanical,Ultrasound Other Therapeutic Interventions NMES for ankle DF Next Visit Focus/Plan Next Note Type Treatment Note Next Visit Plan STM on R glute, TFL, ant tib HEP for ankle DF, nerve glide glute activation NMES on ant tib if needed
--- NOTE | 2021-05-01 10:41 | PT.OTN ---
Current Diagnoses Arthrodesis status (05/01/21) Physical Therapy Treatment Note PT-OP-A Visit Information Start: 03/06/21 10:42 Freq: Status: Active Protocol: Document 05/01/21 09:41 HH (Rec: 05/01/21 10:41 [id number]) Out-Patient Physical Therapy Visit Information Visit Information Visit Type Discharge Summary Visit Start Time 09:45 Visit Stop Time 10:30 Total Visit Minutes 45 Visit Number 17/ Number of TECHNICAL ADMINISTRATOR Visits 0 PT-OP-B Current Condition Start: 03/06/21 10:42 Freq: Status: Active Protocol: Document 03/06/21 10:43 HH (Rec: 03/06/21 11:11 HH [email or web address]) Current Condition History of Current Condition Onset Date 01/06/21 Current Complaints s/p lumbar L4-L5 fusion, LBP, R leg pain, R foot slap History of Current Condition Emma is a 70 yo female here here for her rehab s/p 8 weeks Lumbar L4-L5 fusion. Pt has been having a new onset of radiating R leg pain (lateral knee to medial heel and big toe). She stated she only had mild radiating leg pain bilaterally, along with slight R foot weakness prior to surgery. Pt is having difficulty walking at this point with significant pain at R buttock during WB on RLE and new onset of R foot slap. Sitting and laying seem not to bother her. Pt has been taking Gabapentin at night and muscle relaxant for pain management. She also noticed her balance and overall LE strength have been decreasing. Pt did report to her surgeon Dr. Nesbitt and he stated that it is going to take at least 6 months for recovery. Prior Functional Status Baseline Function- Other pt was able to walk 3-5 miles /day and play pickle ball couple times a week Current Functional Impairments (Reported) Functional Limitations- Mobility/Gait pt is only able to walk up to 1-2 miles a day because of pain. PT-OP-C Subjective Start: 03/06/21 10:42 Freq: Status: Active Protocol: Document 05/01/21 09:41 HH (Rec: 05/01/21 10:41 HH [id number]) OP-PT Subjective Patient Comments Patient Comments I did get a little sore across my low back from last time but i recovered. Patient Reported Progress Improving Patient Questionnaires Oswestry Low Back Index Oswestry Score 12 Oswestry Impairment 1 to 19% Impaired (Score 1-19) PT-OP-D Balance Start: 03/06/21 10:42 Freq: Status: Active Protocol: Document 03/06/21 10:43 HH (Rec: 03/06/21 11:11 [email or web address]) Balance Tests Single Limb Standing Single Limb- Right <3s Single Limb- Left >25s PT-OP-F Manual Assessment Start: 03/06/21 10:42 Freq: Status: Active Protocol: Document 03/06/21 10:43 HH (Rec: 03/06/21 11:11 [email or web address]) Manual Assessments Soft Tissue Assessment Soft Tissue Mobility Assessment significant hypertonicity at R anterior tib and R TFL, and gluteal muscle group PT-OP-G Mobility & Gait Start: 03/06/21 10:42 Freq: Status: Active Protocol: Document 03/06/21 10:43 HH (Rec: 03/06/21 11:11 [email or web address]) OP Gait Assessment Gait Deviations General Gait Pattern Antalgic,Decreased Stride Length,Decreased Feet Clearance Factors Limiting Gait Function Factors Limiting Gait Function Decreased Activity Tolerance, Decreased Sensation,Decreased Strength,Limited Range of Motion,Pain,Poor Balance Comments Gait Comments significant antalgic sign on R LE during stance phase, R foot slap during heel strike. PT-OP-H Neuro Start: 03/06/21 10:42 Freq: Status: Active Protocol: Document 03/06/21 10:43 HH (Rec: 03/06/21 11:11 [email or web address]) Sensation Evaluation Gross Sensation Gross Sensation Right LE Impaired Sensation Description Numbness Dermatome Impairments L5 Deep Tendon Reflex & Clonus Assessment Deep Tendon Reflex Left Patellar Deep Tendon Reflex 2+ Normal Bilateral Achilles Deep Tendon Reflex 2+ Normal Right Patellar Deep Tendon Reflex 0 Absent PT-OP-K Range of Motion Start: 03/06/21 10:42 Freq: Status: Active Protocol: Document 03/06/21 10:43 HH (Rec: 03/06/21 11:11 [email or web address]) Ankle and Foot Goniometric Range of Motion Ankle and Foot Right Passive Ankle/Foot ROM WFL No Testing Position Supine Dorsiflexion with Knee Flexed 10 Dorsiflexion with Knee Extended 8 Right Active Ankle/Foot ROM WFL No Testing Position Supine Dorsiflexion with Knee Extended 0 Comments active DF = -5 Left Active Ankle/Foot ROM WFL Yes Testing Position Supine Dorsiflexion with Knee Flexed 7 Dorsiflexion with Knee Extended 5 PT-OP-L Special Tests Start: 03/06/21 10:42 Freq: Status: Active Protocol: Document 03/06/21 10:43 HH (Rec: 03/06/21 11:11 [email or web address]) Special Tests Lumbar Spine Special Tests Straight Leg Raise Test Results +VE R Comments ASLR up to 80, L = 95 Slump Test Results +VE R Comments radiating pain to buttock PT-OP-M Strength Start: 03/06/21 10:42 Freq: Status: Active Protocol: Document 03/06/21 10:43 (Rec: 03/06/21 11:11 [email or web address]) Hip Strength Hip Manual Muscle Testing Right Flexion (L2) 3+ Fair+ Extension (S1) 4- Good- Abduction 3+ Fair+ Adduction 4- Good- Left Flexion (L2) 5 Normal Extension (S1) 5 Normal Abduction 5 Normal Adduction 5 Normal Knee Strength Knee Manual Muscle Testing Right Flexion (S2) 4+ Good+ Extension (L3) 4+ Good+ Left Flexion (S2) 5 Normal Extension (L3) 5 Normal Ankle/Foot Strength Ankle and Foot Manual Muscle Testing Right Dorsiflexion (L4) 3+ Fair+ Plantarflexion (S1) 4+ Good+ Inversion 4+ Good+ Eversion (S1) 4+ Good+ Left Dorsiflexion (L4) 5 Normal Plantarflexion (S1) 5 Normal Inversion 5 Normal Eversion (S1) 5 Normal Toe Strength Toe Manual Muscle Testing Right Flexion 4- Good- Extension 4+ Good+ Left Great Toe Flexion 4+ Good+ Extension 4+ Good+ PT-OP-Q Treatments Start: 03/06/21 10:42 Freq: Status: Active Protocol: Document 05/01/21 09:41 (Rec: 05/01/21 10:41 [id number]) Therapeutic Exercises Supine Exercises hollow hold Side bilateral Reps/Minutes 10s x 8 Comments for HEP knee to chest Comments for HEP Standing Exercises toe tap Equipment Used 8 step Reps/Minutes 20 x 2 standing hip ext/ abd Standing Exercise Name 1 UE on support and 1UE on pelvis Side bilateral Reps/Minutes 10 x2 Comments for HEP, cues on leveled hip. step up Standing Exercise Name 4 -6 for RLE Reps/Minutes 10x2 toe raises Standing Exercise Name back against wall. Reps/Minutes 20x1 calf raises Standing Exercise Name ball between heels, cues for ankle inv Reps/Minutes 15x2 Comments for HEP Manual Therapy Treatment Manual Traction R hip Body Position Supine Reps/Duration 10 sec hold x10 Comments pt reports decompression sensation Self-Care/Home Management Treatment Education Patient Education Home Exercise Program,Joint Protection,Pain Management, Posture Other Education spent time educating pt on the importance of allowing recovery time for her activities. Recommended doing strengthening 30 mins session x 3x/ wk at the fitness center , and daily walking which allows building progressive musculoskeletal strength with sufficient recovery time. PT-OP-R Modalities Start: 03/06/21 10:42 Freq: Status: Active Protocol: Document 04/17/21 09:39 HH (Rec: 04/17/21 10:32 [id number]) Electric Stimulation Electric Stimulation [place] Stimulation Body Location R ant tib. Duration (Minutes) 10 Intensity 80 Cycle 10/10 Patient Position Sitting Comments with active DF during on pt shows improved induced activation of ant tib by e- stim. PT-OP-T Assessment and Plan Start: 03/06/21 10:42 Freq: Status: Active Protocol: Document 05/01/21 09:41 HH (Rec: 05/01/21 10:41 [id number]) Physical Therapy Assessment Goals gait mechanics Impairment antalgic sign with R foot slap Short Term Goal (STG) pt will strengthen her R ankle DF and big toe extension to improve her foot slap pattern during heel strike STG Duration 5 weeks Carpet Renovator Goal (LTG) 05/01 pt ambulates without foot slap but with mild R lateral trunk lean during R LE stance phase . LTG Duration 10 weeks nerve tension Impairment +Ve for slump test and ASLR Short Term Goal (STG) pt will show improve pain and neural sensitivity without radiating pain to buttock for both slump and ASLR tests STG Duration 8 weeks Correction Goal (LTG) 04/02/21 no discomfort noted. Owestry Impairment pt scores 40 on Owestry Short Term Goal (STG) pt will be able to show improved mobility and strength by scoring 30 or less on Owestry STG Duration 5 weeks Carpet Renovator Goal (LTG) 05/01 goal met pt scores 12 on Owestry LTG Duration 10 weeks Assessment Summary Assessment Last session today and pt has shown improved quality of life (12 on Owestry), gait stability and distance. However, pt has been experiencing soreness and increased neural tension lately possibly d/t her increased activity level. Pt has been doing daily 4 miles walk + 5 strength training days at the fitness center. Spent time educating pt on allowing recovery time. Recommended 3x/wk at the gym + daily walking. I also added hollow hold to HEP to improve her core stability. Pt has met all her goals and she is pleased to be DC from PT at this point. Physical Therapy Plan Frequency and Duration Frequency of Treatment 2x/Week Duration of Treatment 10 weeks Plan of Care Start Date 03/06/21 Plan of Care End Date 05/20/21 Therapeutic Interventions Therapeutic Interventions Aquatic Therapy,Balance Training,Gait Training,Home Exercise Program,Joint Mobilizations,Manual Therapy, Neuromuscular Re-education, Patient/Caregiver Education, Self-Care/Home Management,Soft Tissue Mobilization,Taping, Therapeutic Activities, Therapeutic Exercises Modalities Cold Pack/Ice Massage,Electric Stimulation,Hot Packs, Infrared Therapy,Traction- Mechanical,Ultrasound Other Therapeutic Interventions NMES for ankle DF Next Visit Focus/Plan Next Note Type Treatment Note Next Visit Plan STM on R glute, TFL, ant tib HEP for ankle DF, nerve glide glute activation NMES on ant tib if needed
== END 2021-05-22 14:18 ==
LOC: PHYS 09:45
PROVIDERS: PCP Physician Assistant; Referring Provider Orthopaedic Surgery; Visit Provider Orthopaedic Surgery
DX: Z98.1 Arthrodesis status (principal)
CPT/HCPCS: 97032; 97110; 97112; 97116; 97140; 97162; 97530; 97535